=== PATIENT | female | born 1990 | race Caucasian/White ===

== ENCOUNTER → 2017-12-12 16:02 | Outpatient (CLI) | payer BC, SELFPAY ==
[2017-12-12 18:35] LABS: Thyroid Stim Hormone (TSH) 1.34 uIU/mL (0.358-3.74)
== END ==
PROVIDERS: Family Provider Family Medicine; PCP Family Medicine; Visit Provider Family Medicine
DX: F41.9 Anxiety disorder, unspecified (principal)
CPT/HCPCS: 36415; 84443

== ENCOUNTER 2019-07-13 21:55 | Emergency (ER) | payer BC, SELFPAY ==
[2019-07-13 21:56] VITALS: BP 131/79; PULSE 84; RESP 18; TEMP 36.1; O2SAT 97; BMI 30.9
[2019-07-13 22:26] VITALS: BP 123/70; BP 124/78; BP 128/68; PULSE 66; PULSE 67; PULSE 83
--- NOTE | 2019-07-13 22:27 | EKG12_ITS ---
Test Reason : DYSRHYTHMIA Blood Pressure : / mmHG Vent. Rate : 073 BPM Atrial Rate : 073 BPM P-R Int : 156 ms QRS Dur : 084 ms QT Int : 396 ms P-R-T Axes : 063 071 017 degrees QTc Int : 436 ms Sinus rhythm with Premature atrial complexes Otherwise normal ECG Confirmed by MAXIMUS FRAGA, ASTON ([id number]), publications editor ANKUR SALAZAR ([id number]) on 07/16/2019 11:40:32 AM Referred By: Confirmed By:ASTON STROUD MD
--- NOTE | 2019-07-13 22:29 | ED.VISSUMM ---
- ER Visit Summary Date of Service: 07/13/19 Chief Complaint: Dizziness History of Present Illness: The patient is a 29 F presenting with dizziness. Patient states this started yesterday. She complains of both lightheadedness and vertigo symptoms. She states the lightheadedness is worsened with standing. The vertigo, spinning sensation is worsening with any change in position or turning her head. She did have a syncopal episode in the shower yesterday. She did not hit her head or have any injuries. She denies fever. Denies chest pain or shortness of breath. She has mild nausea without vomiting. She denies abdominal pain. She also complains of dysuria with no frequency. Denies other complaints. Physical Examination: Vitals are stable. Patient is afebrile. Alert no acute distress. HEENT exam is unremarkable. Neck is supple. No meningismus Lungs are clear and equal bilaterally. Heart is regular rate and rhythm. Abdomen is soft nontender nondistended. Extremities are unremarkable. Skin is warm and dry. No focal neurologic deficit. Normal strength and sensation Remainder of exam is unremarkable. Emergency Department Course and Treatment: Patient was given IV fluids, Phenergan, meclizine. Orthostatic vital signs are negative. D-dimer negative. EKG is sinus rhythm rate of 73 with no acute ischemic changes. Basic metabolic panel normal except potassium 3.4. Urinalysis unremarkable. hCG negative. On reevaluation, patient is feeling improved. She is given prescription for meclizine. Advised to follow-up with her primary care physician. Advised return to ED if worsening complaints. Disposition: Discharge home Impression: Peripheral vertigo This note was generated with [employer] dictation software. It may contain incorrect words, spelling, and punctuation that were not noted in review of the chart prior to signing ED Disposition - Plan for ED Patient: Instructions: DIZZINESS, Unk Cause Prescriptions: Meclizine HCl [Antivert] 12.5 mg PO TID PRN PRN #20 tab PRN Reason: Vertigo Prescription Printed Referrals: Duncan Spicer MD [Primary Care Provider] -
--- NOTE | 2019-07-13 22:34 | ED.RN ---
NO OLD EKG
[2019-07-13] MEDS: 0.9% Normal Saline 1,000 ML 1000 ML IV (22:47)
[2019-07-13] MEDS: proMETHazine 25 MG/ML Syringe 6.25 MG IV (22:48)
[2019-07-13] MEDS: Meclizine HCl 25 MG Tablet PO (22:49)
[2019-07-13 23:15] LABS: D-Dimer Quantitative (DVT/PE) < 0.27 FEU/ug/m (0.27-0.49)
[2019-07-13 23:19] LABS: Anion Gap 5 (5-15); BUN 16 mg/dL (7-18); BUN/Creat Ratio 16.9 RATIO (10-20); Calcium,Total 8.4 mg/dL (8.5-10.1); Chloride 108 mmol/L (98-107); Creatinine, Serum 0.95 mg/dL (0.55-1.02); EST Glomerular Filtration Rate 75 mL/min (>60); Est Glom Filt Rate - Afr Amer 90 mL/min (>60); Estimated Creatinine Clearance 76.13 ml/min; Glucose 89 mg/dL (74-106); Potassium 3.4 mmol/L (3.5-5.1); Sodium Level 141 mmol/L (136-145)
[2019-07-13 23:29] LABS: Bacteria 0 SEEN /hpf (None Seen); Mucous, Urine 0 SEEN /hpf (<or=2+); Red Blood Cells-Urine 0 SEEN /hpf (0-5); White Blood Cells 0 SEEN /hpf (0-5)
[2019-07-13 23:35] LABS: Internal QC Validated? YES +Cl - CLEAR BKGD; Pregnancy, Serum, hCG Quali. NEGATIVE Negative
[2019-07-13 23:37] LABS: Color, Urine Straw (Yellow); Glucose, Dipstick Normal (Normal); Ketone-Dipstick Negative (Negative); Leukocyte Esterase-Dipstick Negative /ul (Negative); Nitrite-Dipstick Negative (Negative); Occult Blood-Urine Negative /ul (Negative); Protein-Dipstick Negative (Negative); Specific Gravity, Urine 1.005 (1.002-1.030); Urine Bilirubin Dipstick Negative (Negative); Urine Clarity Clear (Clear); Urine Urobilinogen Normal (Normal)
[2019-07-13 23:42] LABS: Squamous Epithelial Cells - UA 0-5 SEEN /hpf (5-10)
--- NOTE | 2019-07-13 23:48 | ED.DEP ---
ED Disposition - Plan for ED Patient: Instructions: DIZZINESS, Unk Cause Prescriptions: Meclizine HCl [Antivert] 12.5 mg PO TID PRN PRN #20 tablet PRN Reason: Vertigo Referrals: Duncan Spicer MD [Primary Care Provider] -
[2019-07-14 00:02] VITALS: BP 128/68; PULSE 66; RESP 15
== END 2019-07-14 00:03 | disposition home or self-care (01) ==
PROVIDERS: Emergency Provider Emergency Medicine; Family Provider Family Medicine; PCP Family Medicine
DX: H81.399 Other peripheral vertigo, unspecified ear (principal); F41.9 Anxiety disorder, unspecified
CPT/HCPCS: 80048; 81001; 84703; 85379; 93005; 96361; 96374; 99284; A4216

== ENCOUNTER 2019-07-25 08:09 | Emergency (ER) | payer BC, SELFPAY ==
[2019-07-25 08:11] VITALS: BP 127/69; PULSE 84; RESP 16; TEMP 36.9; O2SAT 100
--- NOTE | 2019-07-25 08:29 | ED.VISSUMM ---
- ER Visit Summary Date of Service: 07/25/19 Chief Complaint: Left fifth finger laceration History of Present Illness: The patient is a 29 F who presents with a laceration to her left fifth finger that occurred yesterday. Patient states she was at work yesterday and cut the tip of her finger with a pair of scissors. Patient was able to stop the bleeding yesterday. Patient states that today when she was in the shower she bumped it and it started bleeding again. Patient applied pressure. Patient denies any paresthesias or weakness. Patient is unsure of her last tetanus. Physical Examination: Vital signs are stable. Patient is afebrile. Patient is in no acute distress. Skin is warm and dry. There is a 0.5 cm diameter skin avulsion of the tip of the left fifth finger. There is no active bleeding noted. There are no foreign bodies noted. Sensation was intact to light touch in all digits. Capillary refill is less than 2 seconds in all digits. There is full range of motion of all digits. Emergency Department Course and Treatment: Patient was given a tetanus booster. A bulky dressing was applied. Patient was instructed to maintain a dressing for 2 days. Patient was instructed to then change the dressing daily. Patient was instructed to follow-up with her primary care physician in 5 to 7 days. Patient understood and was agreeable with the plan. All questions were answered. Disposition: Discharge home Impression: Avulsion laceration left fifth finger This note was generated with [employer] dictation software. It may contain incorrect words, spelling, and punctuation that were not noted in review of the chart prior to signing ED Disposition - Plan for ED Patient: Disposition: Home or Assisted Living Diagnosis: Avulsion of fingertip Instructions: LACERATION, Old - Not Sutured Referrals: Duncan Spicer MD [Primary Care Provider] - 5-7 Days
[2019-07-25] MEDS: Diphth,Pertuss(Acell),Tet Vac 0.5 ML Vial IM (08:45)
== END 2019-07-25 09:08 | disposition home or self-care (01) ==
LOC: ED 08:40
PROVIDERS: Emergency Provider Emergency Medicine; Family Provider Family Medicine; PCP Family Medicine
DX: S61.217A Laceration without foreign body of left little finger without damage to nail, initial encounter (principal); W45.8XXA Other foreign body or object entering through skin, initial encounter; Y93.9 Activity, unspecified; Y92.9 Unspecified place or not applicable; Y99.9 Unspecified external cause status; Z23 Encounter for immunization
CPT/HCPCS: 90471; 90715; 99283

== ENCOUNTER → 2020-04-20 17:45 | Outpatient (CLI) | payer BC, SELFPAY | PROVIDERS: Visit Provider Registered Nurse | DX: R05 Cough (principal) | CPT/HCPCS: 87635; U0003 ==

== ENCOUNTER → 2021-01-27 11:26 | Outpatient (CLI) | payer BC, SELFPAY ==
[2021-01-27 15:16] LABS: Absolute Lymphocyte Count 1.38 X10^3/uL (0.83-4.51); Absolute Neutrophil Count 4.1 X10^3/uL (2.0-7.7); Basophil% 1.6 % (0-1); Eosinophil# 0.31 X10^3/uL; Eosinophils% 4.8 % (0-5); Hematocrit 39.6 % (37-47); Hemoglobin 13.1 g/dL (12.0-15.0); Lymphocyte # 1.38 X10^3/ul (0.83-4.51); Lymphocyte % 21.4 % (19-41); Mean Corp Hgb Conc 33.1 g/dL (32-36); Mean Corpuscular Hgb 30.3 pg (27.0-32.0); Mean Corpuscular Volume 91.7 fL (81-99); Mean Platelet Vol. 9.9 fl (6.2-12.0); Monocyte% 7.8 % (0-10); NRBC Flagged by Analyzer 0 % (0-5); Neutrophil # 4.13 X10^3/uL (2.7-7.7); Neutrophil % 64.1 % (47-70); Platelet Count 317 K/mm3 (150-450); RBC Distribution Width CV 12.3 % (11.6-14.6); RBC Distribution Width SD 41.1 fl (35.1-43.9); Red Blood Count 4.32 M/mm3 (4.2-5.4); White Blood Count 6.4 K/mm3 (4.4-11.0)
[2021-01-27 15:42] LABS: Anion Gap 6 (5-15); BUN 14 mg/dL (7-18); BUN/Creat Ratio 15.9 RATIO (10-20); Calcium,Total 9.1 mg/dL (8.5-10.1); Chloride 108 mmol/L (98-107); Creatinine, Serum 0.88 mg/dL (0.55-1.02); EST Glomerular Filtration Rate 80 mL/min (>60); Est Glom Filt Rate - Afr Amer 97 mL/min (>60); Glucose 86 mg/dL (74-106); Potassium 4.4 mmol/L (3.5-5.1); Sodium Level 140 mmol/L (136-145); Thyroid Stim Hormone (TSH) 1.45 uIU/mL (0.358-3.74)
== END ==
PROVIDERS: PCP Family Medicine; Referring Provider Family Medicine; Visit Provider Family Medicine
DX: R07.9 Chest pain, unspecified (principal)
CPT/HCPCS: 36415; 80048; 84443; 85025

== ENCOUNTER → 2023-01-27 | Outpatient (CLI) | payer OTHER, SELFPAY ==
[2023-01-27 08:55] LABS: hCG Titer Quant., Serum 13163 mIU/mL (1-3)
== END | disposition home or self-care (01) ==
LOC: LAB 07:18
PROVIDERS: PCP Family Medicine; Referring Provider Obstetrics & Gynecology; Visit Provider Obstetrics & Gynecology
DX: O26.859 Spotting complicating pregnancy, unspecified trimester (principal); Z3A.00 Weeks of gestation of pregnancy not specified
CPT/HCPCS: 36415; 84702; 86850; 86900; 86901

== ENCOUNTER → 2023-01-29 | Outpatient (CLI) | payer OTHER, SELFPAY ==
[2023-01-29 09:54] LABS: hCG Titer Quant., Serum 22716 mIU/mL (1-3)
== END | disposition home or self-care (01) ==
LOC: LAB 07:21
PROVIDERS: PCP Family Medicine; Referring Provider Obstetrics & Gynecology; Visit Provider Obstetrics & Gynecology
DX: O20.0 Threatened abortion (principal); Z3A.39 39 weeks gestation of pregnancy
CPT/HCPCS: 36415; 84702

== ENCOUNTER → 2023-01-31 | Outpatient (CLI) | payer OTHER, SELFPAY ==
--- NOTE | 2023-01-31 18:16 | US_ITS ---
INDICATION: SPOTTING EXAMINATION: Ultrasound US OB Transvaginal TECHNIQUE: Transvaginal (for optimal evaluation of the adnexa) pelvic ultrasound was performed. Grayscale, spectral waveform, and color flow Doppler evaluation of the adnexa. COMPARISON: None. LMP: [12/22/2022 Beta-hCG: Unknown FINDINGS: UTERUS: 8.9 x 6.1 x 5.0 cm. RIGHT OVARY: 3.3 x 2.8 x 2.2 cm. 2.7 cm anechoic cyst. LEFT OVARY: 2.4 x 2.4 x 1.5 cm. 1.8 cm anechoic cyst. FREE FLUID: None. INTRAUTERINE GESTATIONAL SAC: Single. Mean sac diameter 1.9 cm. YOLK SAC: Identified POLE: Identified CRL 0.30 cm. ESTIMATED GESTATION AGE: 6 weeks 1 day. HEART MOTION: 127 bpm. PLACENTA: Not visualized due to age. SUBCHORIONIC HEMORRHAGE: None. AMNIOTIC FLUID: Qualitatively normal. US/Transvaginal w/Preg US IMPRESSION: Single live intrauterine . Estimated gestational age is 6 week 1 day with LANI 09/25/2023. Electronically Signed: Sheldon Epstein MD at 19:54 EDT ,
== END | disposition home or self-care (01) ==
LOC: OPUS 02-01 13:53
PROVIDERS: PCP Family Medicine; Referring Provider Obstetrics & Gynecology; Visit Provider Obstetrics & Gynecology
DX: O26.859 Spotting complicating pregnancy, unspecified trimester (principal); Z3A.00 Weeks of gestation of pregnancy not specified
CPT/HCPCS: 76817

== ENCOUNTER → 2023-02-22 | Outpatient (CLI) | payer OTHER, SELFPAY ==
[2023-02-24 06:09] LABS: Chlamydia By Nucleic Acid AMP Negative (Negative); Gonococcus By Nucleic Acid AMP Negative (Negative)
== END | disposition home or self-care (01) ==
LOC: LABSPEC 11:29
PROVIDERS: PCP Family Medicine; Referring Provider Obstetrics & Gynecology; Visit Provider Obstetrics & Gynecology
DX: Z34.00 Encounter for supervision of normal first pregnancy, unspecified trimester (principal)
CPT/HCPCS: 87077; 87086; 87088; 87186; 87491; 87591

== ENCOUNTER → 2023-02-28 | Outpatient (CLI) | payer OTHER, SELFPAY ==
[2023-02-28 08:22] LABS: Absolute Lymphocyte Count 1.21 X10^3/uL (0.83-4.51); Basophil# 0.06 X10^3/uL; Basophil% 0.9 % (0-1); Eosinophil# 0.24 X10^3/uL; Eosinophils% 3.4 % (0-5); Hematocrit 36.3 % (37-47); Hemoglobin 12.3 g/dL (12.0-15.0); Lymphocyte # 1.21 X10^3/ul (0.83-4.51); Lymphocyte % 17.2 % (19-41); Mean Corp Hgb Conc 33.9 g/dL (32-36); Mean Corpuscular Hgb 30.5 pg (27.0-32.0); Mean Corpuscular Volume 90.1 fL (81-99); Mean Platelet Vol. 8.9 fl (6.2-12.0); Monocyte# 0.53 X10^3/uL; Monocyte% 7.5 % (0-10); NRBC Flagged by Analyzer 0 % (0-5); Neutrophil # 4.96 X10^3/uL (2.7-7.7); Neutrophil % 70.3 % (47-70); Platelet Count 245 K/mm3 (150-450); RBC Distribution Width CV 12.3 % (11.6-14.6); RBC Distribution Width SD 40.8 fl (35.1-43.9); Red Blood Count 4.03 M/mm3 (4.2-5.4); White Blood Count 7.1 K/mm3 (4.4-11.0)
[2023-02-28 08:41] LABS: Glucose Challenge Gest 1H 50g 110 mg/dL (70-140)
[2023-02-28 09:15] LABS: NATERA MAILED SPECIMEN
[2023-02-28 09:24] LABS: HIV - WCH Non-Reactive (Nonreactive); Hepatitis B Surface Antigen Non-Reactive (Nonreactive); Hepatitis C Antibody Non-Reactive (Nonreactive); Rubella IgG Reactive (Nonreactive); Syphilis Antibodies Non-reactive
== END | disposition home or self-care (01) ==
LOC: PAVLAB 07:59
PROVIDERS: PCP Family Medicine; Referring Provider Obstetrics & Gynecology; Visit Provider Obstetrics & Gynecology
DX: Z34.00 Encounter for supervision of normal first pregnancy, unspecified trimester (principal)
CPT/HCPCS: 36415; 82950; 85025; 86703; 86762; 86780; 86803; 86850; 86900; 86901; 87340

== ENCOUNTER → 2023-03-23 | Outpatient (CLI) | payer OTHER, SELFPAY | END | disposition home or self-care (01) | LOC: LABSPEC 11:51 | PROVIDERS: PCP Family Medicine; Referring Provider Obstetrics & Gynecology; Visit Provider Obstetrics & Gynecology | DX: R30.0 Dysuria (principal) | CPT/HCPCS: 87086; 87088 ==

== ENCOUNTER → 2023-04-16 | Outpatient (CLI) | payer OTHER, SELFPAY | END | disposition home or self-care (01) | LOC: LABSPEC 11:43 | PROVIDERS: PCP Family Medicine; Referring Provider Advanced Practice Midwife; Visit Provider Advanced Practice Midwife | DX: O23.40 Unspecified infection of urinary tract in pregnancy, unspecified trimester (principal); Z3A.00 Weeks of gestation of pregnancy not specified | CPT/HCPCS: 87086 ==

== ENCOUNTER → 2023-05-14 | Outpatient (CLI) | payer OTHER, SELFPAY ==
--- NOTE | 2023-05-14 07:53 | US_ITS ---
INDICATION: anatomy EXAMINATION: Ultrasound US OB Greater Than 14 Weeks TECHNIQUE: Transabdominal and transvaginal pelvic ultrasound was performed. Arredondo scale and color Doppler technique COMPARISON: Prior study dated: 01/31/2023 LMP: 12/22/2022 Provided EGA: 20 weeks, 5 days FINDINGS: INTRAUTERINE GESTATION(s): Single. ESTIMATED GESTATIONAL AGE: 20 weeks, 3 days ESTIMATED DUE DATE (LANI): 09/28/2023 HEART MOTION is 148 bpm. MAXIMAL VERTICAL POCKET (MVP): 5.4 ESTIMATED WEIGHT: 384 g Percentile 53rd%. BIOPHYSICAL PROFILE (BPP): BIOMETRIC MEASUREMENTS: HEAD CIRCUMFERENCE: 17.9 cm which corresponds to 20 weeks, 3 days. BIPARIETAL DIAMETER: 4.8 cm which corresponds to 20 weeks 3 days. ABDOMINAL CIRCUMFERENCE: 16.0 cm which corresponds to 21 weeks, 1 day. FEMORAL LENGTH: 3.4 cm which corresponds to 20 weeks 5 days ANATOMY: Cranial structures, four-chamber heart, abdominal and pelvic viscera, spine and extremities were all well visualized and normal. PRESENTATION: Transverse/variable. PLACENTA: Anterior. There is no placenta previa or abruption. A succenturiate lobe of the placenta is present. CERVIX: The cervix is closed, measuring 3.9 cm. MATERNAL OVARIES: No adnexal masses. FREE FLUID: None. US/OB Anatomy Scan IMPRESSION: * Single live intrauterine with an estimated gestational age by ultrasound of 20 weeks, 3 days. * Estimated weight 384 g which is in the 53rd percentile. * Normal anatomy. * A succenturiate lobe of the placenta is present. Electronically Signed: Anders Martinez MD at 17:45 EDT ,
== END | disposition home or self-care (01) ==
PROVIDERS: PCP Family Medicine; Referring Provider Obstetrics & Gynecology; Visit Provider Obstetrics & Gynecology
DX: O26.859 Spotting complicating pregnancy, unspecified trimester (principal); Z3A.00 Weeks of gestation of pregnancy not specified
CPT/HCPCS: 76805; 76817

== ENCOUNTER → 2023-06-16 | Outpatient (CLI) | payer OTHER, SELFPAY ==
--- NOTE | 2023-06-16 09:27 | US_ITS ---
HISTORY: RUQ pain -- per office RUQ. TECHNIQUE: Arredondo scale and color doppler imaging was performed of the right upper quadrant. 65 images. COMPARISON: None. FINDINGS: LIVER: 15.5 cm in length. Homogeneous echotexture without focal lesion demonstrated. No intrahepatic ductal dilatation. MAIN PORTAL VEIN: Patent with flow in the appropriate direction. COMMON BILE DUCT: 3 mm in diameter. GALLBLADDER: No gallstones. 3 mm wall thickness, upper limits of normal. No pericholecystic fluid. Sonographic Gramajo sign negative. PANCREAS: No focal lesion in the visualized proximal portion. RIGHT KIDNEY: 13.3 cm in length with a cortical thickness of 1.1 cm. No hydronephrosis or gross renal mass demonstrated. US/Abdomen Limited IMPRESSION: No sonographic evidence of cholelithiasis. Electronically Signed: Ondina Sharma MD at 11:57 EST ,
== END | disposition home or self-care (01) ==
LOC: US 09:25
PROVIDERS: PCP Family Medicine; Referring Provider Obstetrics & Gynecology; Visit Provider Obstetrics & Gynecology
DX: R10.11 Right upper quadrant pain (principal)
CPT/HCPCS: 76705

== ENCOUNTER → 2023-07-10 | Outpatient (CLI) | payer OTHER, SELFPAY ==
[2023-07-10 08:07] LABS: Absolute Lymphocyte Count 1.29 X10^3/uL (0.83-4.51); Absolute Neutrophil Count 8.9 X10^3/uL (2.0-7.7); Basophil# 0.08 X10^3/uL; Basophil% 0.7 % (0-1); Eosinophil# 0.32 X10^3/uL; Eosinophils% 2.7 % (0-5); Hematocrit 36.2 % (37-47); Hemoglobin 11.9 g/dL (12.0-15.0); Lymphocyte # 1.29 X10^3/ul (0.83-4.51); Lymphocyte % 11.1 % (19-41); Mean Corp Hgb Conc 32.9 g/dL (32-36); Mean Corpuscular Hgb 31.6 pg (27.0-32.0); Mean Platelet Vol. 9.5 fl (6.2-12.0); Monocyte# 0.82 X10^3/uL; NRBC Flagged by Analyzer 0 % (0-5); Neutrophil % 76.5 % (47-70); Platelet Count 207 K/mm3 (150-450); RBC Distribution Width CV 12.7 % (11.6-14.6); RBC Distribution Width SD 44.3 fl (35.1-43.9); Red Blood Count 3.77 M/mm3 (4.2-5.4); White Blood Count 11.6 K/mm3 (4.4-11.0)
[2023-07-10 08:13] LABS: Glucose Challenge Gest 1H 50g 106 mg/dL (70-140)
[2023-07-10 10:13] LABS: HIV - WCH Non-Reactive (Nonreactive); Syphilis Antibodies Non-reactive
== END | disposition home or self-care (01) ==
PROVIDERS: PCP Family Medicine; Referring Provider Obstetrics & Gynecology; Visit Provider Obstetrics & Gynecology
DX: Z34.00 Encounter for supervision of normal first pregnancy, unspecified trimester (principal)
CPT/HCPCS: 36415; 82950; 85025; 86703; 86780

== ENCOUNTER → 2023-08-10 | Outpatient (CLI) | payer BC, SELFPAY ==
[2023-08-10 15:09] LABS: T4 Free Direct 0.75 ng/dL (0.76-1.46); Thyroid Stim Hormone (TSH) 1.23 uIU/mL (0.358-3.74)
[2023-08-12 10:07] LABS: Thyroid Peroxidase AB < 9 IU/mL (0-34)
== END | disposition home or self-care (01) ==
LOC: LAB 13:37
PROVIDERS: PCP Family Medicine; Referring Provider Obstetrics & Gynecology; Visit Provider Obstetrics & Gynecology
DX: E01.0 Iodine-deficiency related diffuse (endemic) goiter (principal)
CPT/HCPCS: 36415; 84439; 84443; 86376

== ENCOUNTER → 2023-08-28 | Outpatient (CLI) | payer BC, SELFPAY ==
--- NOTE | 2023-08-28 07:54 | US_ITS ---
STUDY: SECOND AND THIRD TRIMESTER OBSTETRICAL ULTRASOUND - LIMITED REASON FOR EXAM: Female, 33 years old growth LMP: December 20, 2022. PRIOR ULTRASOUND: Comparison is made with prior study May 14, 2023. TECHNIQUE: Transabdominal TECHNICAL QUALITY: Adequate. FINDINGS: There is a single intrauterine fetus. The fetus is in a cephalic presentation. There is demonstrated cardiac activity with a heart rate of 142 bpm. There is a normal amniotic fluid volume. The largest amniotic fluid pocket measures 4.7 cm. The amniotic fluid index (NAVI) is 11.64 cm. The placenta is anterior and posterior not low-lying. There is evidence of a succenturiate placenta. There are Grade 1 placental changes. The cervical length was not measured due to the head position. BIOMETRY: BPD: 9.08 cm: 36 weeks, 6 days HC: 32.55 cm: 36 weeks, 6 days AC: 32.27 cm: 36 weeks, 1 days FL: 7.04 cm: 36 weeks, 1 days Age by LMP: 35 weeks, 6 days. LANI by LMP: September 26, 2023. age by prior US: 35 weeks, 4 days. LANI by prior US: September 28, 2023. age by current US: 36 weeks, 5 days. LANI by current US: September 20, 2023. Estimated weight: 2931 grams, +/- 440 grams, 66 percentile. US/OB Limited With Biometrics IMPRESSION: Single live intrauterine gestation with a mean gestational age of 35 weeks and 4 days. The measurements obtained today following within the normal expected range. Electronically Signed: Moe Myers MD at 15:22 EST ,
--- OUTSIDE RECORDS SUMMARY | 2023-08-28 08:07 | XMS RPT_ITS | CCD ---
Author Name Unknown Address [address] [place] [address] Organization [facility] Care Team Providers Care Human Resources Administrator Name Role Phone Bambi FRAGA, Lucina Primary Care Provider NEPHAM ARMSTRONG, JULES Referring Unavail able GANTA, LUCINA Primary Care Unavailable NEYHART ARMSTRONG, JULES Referring Unavail able GANTA, LUCINA Primary Care Unavailable GANTA, LUCINA Primary Care Unavailable GENE GRACIA Attending Unavailable NEYHART ARMSTRONG, JULES Referring Unavail able GANTA, LUCINA Primary Care Unavailable GANTA, LUCINA Primary Care Unavailable NEYHART ARMSTRONG, JULES Attending Unavail able GANTA, LUCINA Primary Care Unavailable NEYHART ARMSTRONG, JULES Referring Unavail able NEYHART ARMSTRONG, JULES Referring Unavail able ALEJANDRA PAZ Attending Unavailable GANTA, LUCINA Primary Care Unavailable GANTA, LUCINA Primary Care Unavailable NEYHART ARMSTRONG, JULES Attending Unavail able GANTA, LUCINA Primary Care Unavailable GANTA, LUCINA Primary Care Unavailable Medications Completed/Discontinued Medications Medication Drug Class(es) Dates Sig (Normalized) Sig (Original) 24 hr buPROPion hydrochloride 150 mg extended release oral tablet (5 sources) Aminoketone Start: 11-02-2016 take 1 tablet by mouth once daily buPROPion XL (WELLBUTRIN XL) 150 mg 24 hr tablet Indications: Anxiety Take 1 tablet by mouth once daily. 90 tablet 3 11/02/2016 Active Problems Active Problems Problem Classification Problem Date Documented Date Episodic/Chronic Anxiety disorders (5 sources) Anxiety; Translations: [Anxiety disorder, unspecified] Onset: 08-04-2014 08-01-2021 Chronic Genitourinary symptoms and ill-defined conditions (1 source) Painful micturition, unspecified; Translations: [Pain with urination] Onset: 12-25-2022 Episodic Immunizations and screening for infectious disease (2 sources) Patient encounter status; Translations: [Encounter for screening for human papillomavirus (HPV)] Episodic Menstrual disorders (2 sources) Dysmenorrhea; Translations: [Dysmenorrhea, unspecified] Onset: 12-25-2022 Chronic Other female genital disorders (2 sources) Abnormal uterine bleeding; Translations: [Abnormal uterine and vaginal bleeding, unspecified] Chronic Other female genital disorders (1 source) Abnormal uterine and vaginal bleeding, unspecified; Translations: [Abnormal uterine bleeding (AUB)] Onset: 05-04-2022 Chronic Other nutritional; endocrine; and metabolic disorders (1 source) Obesity, unspecified; Translations: [Class 1 obesity with body mass index (BMI) of 33.0 to 33.9 in adult, unspecified obesity type, unspecified whether serious comorbidity present] Onset: 12-05-2022 Chronic Other nutritional; endocrine; and metabolic disorders (1 source) Body mass index (BMI) 33.0-33.9, adult; Translations: [Class 1 obesity with body mass index (BMI) of 33.0 to 33.9 in adult, unspecified obesity type, unspecified whether serious comorbidity present] Onset: 12-05-2022 Chronic Other screening for suspected conditions (not mental disorders or infectious disease) (5 sources) Cancer cervix screening status; Translations: [Encounter for screening for malignant neoplasm of cervix] Onset: 12-05-2022 Episodic Residual codes; unclassified (1 source) FH: Thyroid disorder; Translations: [Family history of other endocrine, nutritional and metabolic diseases] Episodic Thyroid disorders (7 sources) Goiter; Translations: [Nontoxic goiter, unspecified] Onset: 08-18-2014 Chronic Past or Other Problems Problem Classification Problem Date Documented Da te Episodic/Chronic Other nutritional; endocrine; and metabolic disorders (5 sources) Weight gain; Translations: [Abnormal weight gain] Onset: 08-04-2014 08-04-2014 Episodic Residual codes; unclassified (1 source) Family history of other endocrine, nutritional and metabolic diseases; Translations: [Family history of thyroid disease] Onset: 05-04-2022 Episodic Results Test Name Value Interpretation Reference Range Facil ity Vital Signs Date Time Vital Sign Value Performing Clinician Faci lity 05-04-2022 14:01-0400 Body weight 88.45 kg Jules Armstrong MD Work Phone: [facility] 05-04-2022 14:01-0400 Diastolic blood pressure 80 mm[Hg] Jules Armstrong MD Work Phone: [facility] 05-04-2022 14:010400 Systolic blood pressure 120 mm[Hg] Jules Armstrong MD Work Phone: [facility] Encounters Encounter Date Encounter Type Care Provider Facility Start: 01-30-2023 Telephone encounter Alejandra Paz MD Work Phone: URO/Gynecology Procedures Date Procedure Procedure Detail Performing Clinician Start: 05-04-2022 Urine test visual color cmprsn meths Jules Armstrong MD Work Phone: Plan of Treatment Date Care Activity Detail Author Start: 07-25-2029 Urine microalbumin profile DTAP,TDAP,TD (2 - Td or Tdap) [facility] Start: 05-04-2027 HPV TESTING HPV TESTING [facility] Start: 05-04-2027 PAP TESTING PAP TESTING [facility] Start: 08-06-2022 DEPRESSION ASSESSMENT DEPRESSION ASSESSMENT [facility] Start: 07-03-2022 9vhpv vacc 2/3 dose sched im use HUMAN PAPILLOMAVIRUS 9-VALENT HPV IM Immunization/Injection Routine Need for prophylactic vaccination/inoculation against viral disease Expected: 07/03/2022 (Approximate) [facility] Work Phone: Immunizations Immunization Date Immunization Notes Care Provider Fa cility 05-04-2022 Human Papillomavirus 9-valent vaccine Jules Armstrong MD Work Phone: [facility] 07-25-2019 tetanus toxoid, redu lorenzo diphtheria toxoid, and acellular pertussis vaccine, adsorbed Jules Armstrong MD Work Phone: [facility] Work Phone: 09-15-2014 human papilloma viru s vaccine, quadrivalent Jules Armstrong MD Work Phone: [facility] 08-20-2009 novel influenza-H1N1 -09, preservative-free, injectable Jules Armstrong MD Work Phone: [facility] Work Phone: 10-30-2008 hepatitis B vaccine, pediatric or pediatric/adolescent dosage Jules Armstrong MD Work Phone: [facility] Work Phone: 10-30-2008 hepatitis B vaccine, unspecified formulation Jules Armstrong MD Work Phone: [facility] Payers Date Payer Category Payer Unknown [id number] 2021 Unknown [id number] 2021 Unknown [id number] Social History Date Type Detail Facility Start: 04-14-2011 Tobacco smoking stat [facility] Never smoked tobacco [facility] Work Phone: Start: 04-14-2011 Tobacco use and exposure Smokeless tobacco non-user [facility] Work Phone: Start: 05-04-2022 End: 12-25-2022 Alcohol intake Not Asked [facility] Start: 1991 Sex Assigned At Not on file [facility] Start: 04-23-2022 End: 05-15-2022 Exposure to SARS-CoV-2 (event) Not sure [facility] Clinical Notes 05-04-2022 to 02-01-2023 Telephone Encounter - Tiago Tomlin APRN.CNP - 02/01/2023 3:15 PM EDTTelephone Encounter - Marly Norris RN - 01/30/2023 11:37 AM EDTTelephone Encounter - Graciela Mares RN - 10/30/2022 1:38 PM EDT Note Date & Type Note Facility 02-01-2023 Miscellaneous Notes Received a call from Dr. Sellers at [facility]. Case reviewed. MRI approved through 07/31/23. Approval number [id number]. Tiago Tomlin APRN.CORBY P2P for MRI set for 02/01 with Tiago Tomlin at 3:15 pm. Marly Norris RN documented in this encounter [facility] 12-25-2022 Note HNO ID: [id number] Author: Alejandra Paz MD Service: ? Author Type: Physician Type: Progress Notes Filed: 12/25/2022 4:45 PM Note Text: Female P/elvic Medicine AND Reconstructive Surgery Consult CHIEF COMPLAINT: Cyndie Crum is a 32 year old female who presents for consultation requested by Dr. Armstrong for an opinion regarding urinary pain during menstrual period. HISTORY OF PRESENT ILLNESS: Symptoms presented upon discontinuation of oral contraceptive in April 2022. She is currently trying to get . She had previously been on OCPs since 17 year old. During her menses she experiences burning pain with urination. Followed by a dull pain that lasts approximately 20 minutes after urination, 5/10 on pain scale. Also has vulvar pain, uses heat and medication. Only experiences these during menses. Intermittent urinary frequency. She also c/o dysmenorrhea, intermittent dyspareunia that also occurs mostly during her periods. She has had UA/Urine cultures that do not show infection. 05/21/2022 4:32 PM - [facility], Scanning In Results-Findings Indication Abnormal uterine bleeding Impression Normal appearing anteverted uterus that measures 75 mm x 37 mm x 45 mm. The central endometrium complex measures 4.3 mm in combined thickness. No abnormal blood flow to suggest a polyp or focal endometrial pathology is observed within the endometrial complex. The contour of the endometrial cavity was normal on 3-D imaging. The left ovary is normal appearing. There is a small, 2.6 cm simple appearing right ovarian cyst present. There is no free fluid visualized in the peritoneal cavity. Recommendations A simple ovarian cyst less than 5cm in a premenopausal woman is likely benign. Follow up imaging as clinically indicated. Method Transabdominal, transvaginal, 3D ultrasound examination, Color Doppler examination Uterus Uterus: Visualized Uterus position: anteverted Uterus long 75 mm Uterus ap 37 mm Uterus tr 45 mm Uterus Vol 64.5 cm? Endometrial thickness, total 4.3 mm Right Ovary Rt ovary: Visualized Rt ovary D1 31 mm Rt ovary D2 28 mm Rt ovary D3 28 mm Rt ovary Vol 12.7 cm? Rt ovarian cyst D1 26 mm Rt ovarian cyst D2 24 mm Rt ovarian cyst D3 23 mm Rt ovarian cyst mean 24.3 mm Rt ovarian cyst vol 7.515 cm? Rt ovarian cyst findings: simple cyst Left Ovary Lt ovary: Visualized Lt ovary D1 25 mm Lt ovary D2 20 mm Lt ovary D3 14 mm Lt ovary Vol 3.6 cm? Cul de Sac Visualized. 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 OB History T0 L0 Sexual function Sexually active: Sexual dysfunction: occasional deep pain during intercourse PFDI-20 Do you: Usually experience pressure in the lower abdomen? No (0) Usually experience heaviness or dullness in the pelvic area? No (0) Usually have a bulge or something falling out that you can see or feel in your vaginal area? No (0) Ever have to push on the vagina or around the rectum to have or complete a bowel movement? No (0) Usually experience a feeling of incomplete bladder emptying? Yes, somewhat bothersome (2) Ever have to push up on a bulge in the vaginal area with your fingers to start or complete urination? No (0) Feel you need to strain too hard to have a bowel movement? No (0) Feel you have not completely emptied your bowels at the end of a bowel movement? No (0) Usually lose stool beyond your control if your stool is well formed? No (0) Usually lose stool beyond your control if your stool is loose? No (0) Usually lose gas from the rectum beyond your control? No (0) Usually have pain when you pass your stool? Yes, somewhat bothersome (2) Experience a strong sense of urgency and have to rogers to the bathroom to have a bowel movement? No (0) Does part of your bowel ever pass through the rectum and bulge outside during or after a bowel movement? No (0) Usually experience frequent urination? Yes, somewhat bothersome (2) Usually experience urine leakage associated with a feeling of urgency, that is, a strong sensation of needing to go to the bathroom? No (0) Usually experience urine leakage related to coughing, sneezing or laughing? No (0) Usually experience small amounts of urine leakage (that is, drops)? No (0) Usually experience difficulty emptying your bladder? No (0) Usually experience pain or discomfort in the lower abdomen or genital region? Yes, moderately bothersome (3) PAST SURGICAL HISTORY Procedure Laterality Date NONE PAST MEDICAL HISTORY Diagnosis Date Anxiety 08/04/2014 Having anxiety for the past 3 months. Thyroid nodule 08/18/2014 Weight gain 08/04/2014 FAMI (more content not included)... [facility] 12-05-2022 Note HNO ID: [id number] Author: Jules Armstrong MD Service: ? Author Type: Physician Type: Progress Notes Filed: 12/05/2022 8:41 AM Note Text: Cyndie Crum is a 32 year old female who presents for problem visit patient reports having pain with urination only during her menstrual cycle. She states that this has been happening over the last year. She states that she stopped her oral contraceptive pills in April and noticed that the pain has gotten worse. She states that she is only had about 2 regular cycles since stopping her oral contraceptive pills but the pain is definitely more severe. She states that she describes discomfort/pressure sensation. She does have some frequency. She states that it is different from a sensation of an infection. She has tried to take Pyridium without any improvement. She reports she does not drink any significant amount of caffeine or acidic beverages. Patient reports no other pelvic pain no pain with bowel movements no pain with intercourse. She states that her menses are little bit more painful than she previously remembers. Patient reports no other pelvic pain no pain with bowel movements no pain with intercourse. She states that her menses are little bit more painful than she previously remembers. She has taken ibuprofen without much relief. She wonders if she does have endometriosis. She is starting to track her cycles that she would like to conceive. Patient also complaining of blood-streaked stools over the last few months. Does not have a history of hemorrhoids. She denies any straining with her bowel movements she denies constipation or diarrhea. Patient also concerned with inability to lose weight. She states she keeps gaining weight despite attempts to lose weight. Is interested in weight management options. OB History No obstetric history on file. Teletype Adjuster History LMP: 04/06/2022, Having periods Age at Menarche: Age at First : Age at Menopause: Teletype Adjuster History Comments: Sexual Activity: Not Asked; No partner data on record Contraception: No contraception data on record PAST MEDICAL HISTORY Diagnosis Date Anxiety 08/04/2014 Having anxiety for the past 3 months. Thyroid nodule 08/18/2014 Weight gain 08/04/2014 PAST SURGICAL HISTORY Procedure Laterality Date NONE FAMILY HISTORY Problem Relation Age of Onset Hypertension Mother Hypertension Father Thyroid Mother Headache Son Developmental problem Child Hypertension Paternal Grandfather Diabetes Paternal Grandfather Multiple Sclerosis Maternal Aunt Social History Tobacco Use Smoking status: Never Smokeless tobacco: Never Current Outpatient Medications Medication Sig Desogestrel-Ethinyl Estradiol (APRI) 0.15-0.03 mg per tablet Take 1 tablet by mouth once daily. Needs annual appointment for further refills (Patient not taking: Reported on 12/05/2022) hydrOXYzine HCl (ATARAX) 25 mg tablet TAKE 1 TABLET BY MOUTH EVERY 6 HOURS NEEDED FOR ITCHING/RASH. (Patient not taking: Reported on 05/04/2022) buPROPion XL (WELLBUTRIN XL) 150 mg 24 hr tablet Take 1 tablet by mouth once daily. (Patient not taking: Reported on 05/04/2022) No current facility-administered medications for this visit. Allergies As of Date: 12/05/2022 (No Known Allergies) Fully Assessed 12/05/2022 REVIEW OF SYSTEMS Abdomen: see hpi Bladder: see hpi .. Expanded ROS: GENERAL: Negative for fever Allergies and current medication updated:Yes EXAM: BP 114/70 Wt 194 lb (88.0kg) LMP 11/27/2022 GENERAL: pleasant, female in no apparent distress HEENT: Normocephalic and atraumatic NECK: Supple and full range of motion DERMATOLOGY: Normal and without lesions NEURO: alert and oriented x3,exam grossly non-focal EXTREMITIES: normal ASSESSMENT AND PLAN: Encounter Diagnosis ICD-10-CM 1. Pain with urination R30.9 CONSULT TO URO GYNECOLOGY 2. Dysmenorrhea N94.6 CONSULT TO URO GYNECOLOGY 3. Hematuria, unspecified type R31.9 URINE CULTURE 4. Blood in stool K92.1 CONSULT TO GASTROENTEROLOGY 5. Class 1 obesity with body mass index (BMI) of 33.0 to 33.9 in adult, unspecified obesity type, unspecified whether serious comorbidity present E66.9 VITAMIN D 25 HYDROXY Z68.33 INSULIN ASSAY BLOOD HGB A1C LIPID PANEL, NONFASTING COMP METABOLIC PANEL CBC 6. Encounter for vitamin deficiency screening Z13.21 VITAMIN D 25 HYDROXY 7. Encounter for screening for diabetes mellitus Z13.1 INSULIN ASSAY BLOOD HGB A1C COMP METABOLIC PANEL 8. Screening cholesterol level Z13.220 LIPID PANEL, NONFASTING 9. Screening, anemia, deficiency, iron Z13.0 CBC Weight mgmt appt reviewed with patient. Previous pelvic us reviewed with patient- declines another pelvic ultrasound a this time. Possible IC vs endometriosis implants in bladder mucosa reviewed with patient. May want to consider pelvic pain clinic. Will send to urogyn for further evaluation and GI for blood i (more content not included)... [facility] 10-30-2022 Miscellaneous Notes Patient notified. Transferred to financial counselor. Graciela Mares RN Have her schedule visit- last time I saw her she was having irregular bleeding per my note. At that point we can decide what labs are needed etc. Virtual visit ok. Patient calling with concerns that she has not had a period in 5 months. Patient recently stopped taking her OCP last month as she would like to become . Per patient though she was not having a period while she was on the pill either since April. Patient states she has taken 3 tests and all have been negative. Patient asking at what point she should be concerned that a menses has not occurred. Pinky Topete RN documented in this encounter [facility] 05-15-2022 Note HNO ID: [id number] Author: Sheila Bell RDMS Service: ? Author Type: Nurse Advocate Type: Progress Notes Filed: 05/15/2022 2:53 PM Note Text: Radiology Service Progress Note PATIENT NAME: Cyndie Crum DATE OF SERVICE: May 15, 2022 TIME: 2:52 PM PATIENT IDENTITY VERIFICATION COMPLETED USING TWO (2) IDENTIFIERS: Name and Date of confirmed by patient verbally. FALL SCREENING: Has the patient had 2 falls in the last year or 1 fall with injury or currently using an Ambulatory Assistive Device (Walker, Cane, Wheelchair, Crutches, etc.)? No PATIENT GENDER DATA: Female. status: : No status: NO. PATIENT RELEVANT IMPLANT DATA REVIEWED: Not Applicable RADIOLOGY DEPARTMENT: Ultrasound PERIPHERAL IV DATA: Not applicable SIGNED BY: Sheila Bell RDMS May 15, 2022 2:52 PM [facility] 05-09-2022 Miscellaneous Notes Patient informed Yes I feel she should her thyroid felt enlarged on exam. Patient aware of normal thyroid labs. Asking if she still needs to complete the thyroid u/s that is scheduled for 05/15? Sole Fortune RN documented in this encounter [facility] 05-04-2022 Note HNO ID: [id number] Author: Maribel Carrion MA Service: ? Author Type: Monkey Breeder Type: Progress Notes Filed: 05/04/2022 3:20 PM Note Text: Patient identified by name and date of . Cyndie Crum is here for her HPV Gardasil vaccination, injection # two of the series. Patient ?No Gardasil injection was given without incident. See immunizations for details of immunizations administered today. VIS sheet provided: Yes Patient advised to follow up in 4 months from the 2nd injection Provider Jules Armstrong MD was present in office at time of injection. Maribel Carrion MA [facility] 05-04-2022 Note HNO ID: [id number] Author: Jules Armstrong MD Service: ? Author Type: Physician Type: Progress Notes Filed: 05/04/2022 3:20 PM Note Text: Roll Inspector offered: Patient declines. Cyndie Crum is a 32 year old female who presents for irregular bleeding. Patient reports has been on control pills for many years. She states that in April she has had bleeding nearly every day. Patient states the bleeding is unpredictable but between light and heavy. Patient states in March she did take 1 pill late but other than that has been consistent with taking her medication. Patient states is not a mass relationship with her and declines any concerns for STDs or vaginal infections today. She denies any vaginal odors itching or burning. Patient reports that she does have a significant family history for thyroid disease. Patient denies any bleeding disorders. Patient reports does not feel that she has ever had a Pap smear done previously. Patient states she has not finished her HPV vaccination. Patient denies any significant recent life stressors including weight loss or weight gain. She denies any changes with medications. Patient offers no other concerns at this time. OB History No obstetric history on file. Teletype Adjuster History LMP: 04/06/2022, Having periods Age at Menarche: Age at First : Age at Menopause: Teletype Adjuster History Comments: Sexual Activity: Not Asked; No partner data on record Contraception: No contraception data on record PAST MEDICAL HISTORY Diagnosis Date Anxiety 08/04/2014 Having anxiety for the past 3 months. Thyroid nodule 08/18/2014 Weight gain 08/04/2014 PAST SURGICAL HISTORY Procedure Laterality Date NONE FAMILY HISTORY Problem Relation Age of Onset Hypertension Mother Hypertension Father Thyroid Mother Headache Son Developmental problem Child Hypertension Paternal Grandfather Diabetes Paternal Grandfather Multiple Sclerosis Maternal Aunt Social History Tobacco Use Smoking status: Never Smokeless tobacco: Never Current Outpatient Medications Medication Sig Desogestrel-Ethinyl Estradiol (APRI) 0.15-0.03 mg per tablet Take 1 tablet by mouth once daily. Needs annual appointment for further refills hydrOXYzine HCl (ATARAX) 25 mg tablet TAKE 1 TABLET BY MOUTH EVERY 6 HOURS NEEDED FOR ITCHING/RASH. (Patient not taking: Reported on 05/04/2022) buPROPion XL (WELLBUTRIN XL) 150 mg 24 hr tablet Take 1 tablet by mouth once daily. (Patient not taking: Reported on 05/04/2022) No current facility-administered medications for this visit. Allergies As of Date: 05/04/2022 (No Known Allergies) Fully Assessed 11/02/2016 REVIEW OF SYSTEMS Abdomen: no pain Bladder: no dysuria .. Expanded ROS: GENERAL: No weight loss, malaise or fevers Allergies and current medication updated:Yes EXAM: BP 120/80 Wt 195 lb (88.5kg) LMP 04/06/2022 GENERAL: pleasant, female in no apparent distress HEENT: Normocephalic and atraumatic NECK: Supple, full range of motion, no adenopathy, and enlarged thyroid- RIGHT >> LEFT DERMATOLOGY: Normal, without lesions, non-icteric, and non-hirsute ABDOMEN: soft, non-tender, and no masses PELVIC: external genitalia normal, normal Bartholin's glands, urethra, Gravity's glands, no vulvar lesions, no cervical lesions, good vaginal support, physiologic discharge present, normal appearing perineal body and perianal region- scant blood in vault. BIMANUAL: uterus normal size, shape and consistency, no adnexal masses, and non-tender NEURO: alert and oriented x3,exam grossly non-focal EXTREMITIES: normal ASSESSMENT AND PLAN: Encounter Diagnosis ICD-10-CM 1. Abnormal uterine bleeding (AUB) N93.9 CBC PELVIC US WHI ASUNCION / TRICHOMONAS AMPLIFICATION BACTERIAL VAGINOSIS AMPLIFICATION 2. Dysmenorrhea N94.6 PELVIC US WHI HCG QUAL UR B/O 3. Family history of thyroid disease Z83.49 TSH BLD THYROGLOBULIN AB T3 BLD T4/FTI/T4U US THYROID/PARATHYROID 4. Enlarged thyroid E04.9 TSH BLD THYROGLOBULIN AB T3 BLD T4/FTI/T4U US THYROID/PARATHYROID 5. Encounter for screening for human papillomavirus (HPV) Z11.51 PAP FLUID CERVICAL SCREENING 6. Screening for cervical cancer Z12.4 PAP FLUID CERVICAL SCREENING 7. Need for prophylactic vaccination/inoculation against viral disease Z23 THER/PROPH/DIAG INJ, SC/IM HUMAN PAPILLOMAVIRUS 9-VALENT HPV IM HUMAN PAPILLOMAVIRUS 9-VALENT HPV IM 8. Causes of abnormal bleeding or discussed with the patient. Recommendation at this point is to take her placebo pills this week and then start her new pack as scheduled. If the bleeding becomes heavy or does not stop after 5 days of taking the inactive pill then we will consider doubling up on her control pills if all of her labs are normal. Patient verbalized understanding agrees with her plan of care. I will call her with the results once all the labs are resulted. 9 HPV vaccine (more content not included)... [facility] 05-04-2022 History of Presen t illness Narrative Patient identified by name and date of . Cyndie Crum is here for her HPV Gardasil vaccination, injection # two of the series. Patient ?No Gardasil injection was given without incident. See immunizations for details of immunizations administered today. VIS sheet provided: Yes Patient advised to follow up in 4 months from the 2nd injection Provider Jules Armstrong MD was present in office at time of injection. Maribel Carrion MA Roll Inspector offered: Patient declines. Cyndie Crum is a 32 year old female who presents for irregular bleeding. Patient reports has been on control pills for many years. She states that in April she has had bleeding nearly every day. Patient states the bleeding is unpredictable but between light and heavy. Patient states in March she did take 1 pill late but other than that has been consistent with taking her medication. Patient states is not a mass relationship with her and declines any concerns for STDs or vaginal infections today. She denies any vaginal odors itching or burning. Patient reports that she does have a significant family history for thyroid disease. Patient denies any bleeding disorders. Patient reports does not feel that she has ever had a Pap smear done previously. Patient states she has not finished her HPV vaccination. Patient denies any significant recent life stressors including weight loss or weight gain. She denies any changes with medications. Patient offers no other concerns at this time. OB History No obstetric history on file. Teletype Adjuster History LMP: 04/06/2022, Having periods Age at Menarche: Age at First : Age at Menopause: Teletype Adjuster History Comments: Sexual Activity: Not Asked; No partner data on record Contraception: No contraception data on record PAST MEDICAL HISTORY Diagnosis Date Anxiety 08/04/2014 Having anxiety for the past 3 months. Thyroid nodule 08/18/2014 Weight gain 08/04/2014 PAST SURGICAL HISTORY Procedure Laterality Date NONE FAMILY HISTORY Problem Relation Age of Onset Hypertension Mother Hypertension Father Thyroid Mother Headache Son Developmental problem Child Hypertension Paternal Grandfather Diabetes Paternal Grandfather Multiple Sclerosis Maternal Aunt Social History Tobacco Use Smoking status: Never Smokeless tobacco: Never Current Outpatient Medications Medication Sig Desogestrel-Ethinyl Estradiol (APRI) 0.15-0.03 mg per tablet Take 1 tablet by mouth once daily. Needs annual appointment for further refills hydrOXYzine HCl (ATARAX) 25 mg tablet TAKE 1 TABLET BY MOUTH EVERY 6 HOURS NEEDED FOR ITCHING/RASH. (Patient not taking: Reported on 05/04/2022) buPROPion XL (WELLBUTRIN XL) 150 mg 24 hr tablet Take 1 tablet by mouth once daily. (Patient not taking: Reported on 05/04/2022) No current facility-administered medications for this visit. Allergies As of Date: 05/04/2022 (No Known Allergies) Fully Assessed 11/02/2016 REVIEW OF SYSTEMS Abdomen: no pain Bladder: no dysuria .. Expanded ROS: GENERAL: No weight loss, malaise or fevers Allergies and current medication updated:Yes EXAM: BP 120/80 Wt 195 lb (88.5kg) LMP 04/06/2022 GENERAL: pleasant, female in no apparent distress HEENT: Normocephalic and atraumatic NECK: Supple, full range of motion, no adenopathy, and enlarged thyroid- RIGHT >> LEFT DERMATOLOGY: Normal, without lesions, non-icteric, and non-hirsute ABDOMEN: soft, non-tender, and no masses PELVIC: external genitalia normal, normal Bartholin's glands, urethra, [place]'s glands, no vulvar lesions, no cervical lesions, good vaginal support, physiologic discharge present, normal appearing perineal body and perianal region- scant blood in vault. BIMANUAL: uterus normal size, shape and consistency, no adnexal masses, and non-tender NEURO: alert and oriented x3,exam grossly non-focal EXTREMITIES: normal ASSESSMENT AND PLAN: Encounter Diagnosis ICD-10-CM 1. Abnormal uterine bleeding (AUB) N93.9 CBC PELVIC US WHI ASUNCION / TRICHOMONAS AMPLIFICATION BACTERIAL VAGINOSIS AMPLIFICATION 2. Dysmenorrhea N94.6 PELVIC US WHI HCG QUAL UR B/O 3. Family history of thyroid disease Z83.49 TSH BLD THYROGLOBULIN AB T3 BLD T4/FTI/T4U US THYROID/PARATHYROID 4. Enlarged thyroid E04.9 TSH BLD THYROGLOBULIN AB T3 BLD T4/FTI/T4U US THYROID/PARATHYROID 5. Encounter for screening for human papillomavirus (HPV) Z11.51 PAP FLUID CERVICAL SCREENING 6. Screening for cervical cancer Z12.4 PAP FLUID CERVICAL SCREENING 7. Need for prophylactic vaccination/inoculation against viral disease Z23 THER/PROPH/DIAG INJ, SC/IM HUMAN PAPILLOMAVIRUS 9-VALENT HPV IM HUMAN PAPILLOMAVIRUS 9-VALENT HPV IM 8. Causes of abnormal bleeding or discussed with the patient. Recommendation at this point is to take her placebo pills this week and then start her new pack as scheduled. If the bleeding becomes heavy or does not stop after 5 days of taking the inactive pill then we will consider doubling up on her control pills if all of her labs are normal. Patient verbalized understanding agrees with her plan of care. I will call her with the results once all the labs are resulted. 9 HPV vaccine Medical Decision Making: Medical Decision Making Level: 1 - N/A Jules Rivera MD documented in this encounter [facility] 05-04-2022 Instructions Maribel Carrion MA - 05/04/2022 2:27 PM EDT Gardasil Gardasil is a vaccine to protect against Human Papillomavirus (HPV) types 6, 11, 16, 18, 31,33,45, 52, 58. These viruses cause cancer and precancerous lesions on the cervix (opening between vagina and uterus), in the vagina and on the vulva (skin around the outside of the vagina) as well as genital warts. The vaccine cannot cause these diseases and cannot treat them if already present. Gardasil works best if given before contact with HPV. Most people are exposed to HPV soon after starting sexual activity. The vaccine is recommended between the ages of 9 and 45. Gardasil does not protect against all strains of HPV. Women who receive the vaccine still need to have regular pelvic exams and cervical cancer screening with the pap smear. You should ask your doctor if Gardasil is right for you if you have a weakened immune system, a bleeding disorder, plan to become soon or have a current illness causing fever. Gardasil is not recommended for women. You should be sure your doctor is aware of any allergies you have and all medications and herbal supplements you take. Gardasil is given to those ages 9-14 in 2 doses at 0 and 8 months. In ages 15-45, three injections are given at 0,2,6 months. Common side effects include pain, redness, itching and swelling at the injection site, nausea, fever, dizziness and fainting. Rare but potentially serious reactions have been reported. These include allergic reaction, swollen glands, joint and muscle pain, weakness and Guillain-[place] syndrome. documented in this encounter [facility] Diagnosis DUB (dysfunctional uterine bleeding)- Primary Other disorder of menstruation and other abnormal bleeding from female genital tract [facility]ative)* Diagnostic Procedure Only (Routine) - Open Specialty Diagnoses / Procedures Referred By Ayaan ricci Referred To Contact [facility] Diagnoses Abnormal uterine bleeding (AUB) Dysmenorrhea Procedures PELVIC US WHI US PELVIC NONOBSTETRIC REAL-TIME IMAGE COMPLETE Jules Leggett MD [address] [place] [address] [address] Referral ID Status Reason Start Date Expiration Date V isits Requested Visits Authorized [id number] Open Auto-Generate d Referral 05/04/2022 05/04/2023 1 1 * Diagnostic Procedure Only (Routine) - Authorized Specialty Diagnoses / Procedures Referred By Contac t Referred To Contact [facility] Diagnoses Family history of thyroid disease Enlarged thyroid Procedures US THYROID/PARATHYROID US SOFT TISSUE HEAD & NECK REAL TIME IMGE DOCM Jules Leggett MD [address] [place] [address] [facility] Referral ID Status Reason Start Date Expiration Date Visits Requested Visits Authorized [id number] Authorized Auto-Generat ed Referral 05/04/2022 06/03/2023 1 1 [facility] Summary Purpose Family History No Family History Records Found Advance Directives No Advanced Directives Records Found Additional Source Comments Source Comments (unrecognize d section and content) In the event this informatio n is protected by the Federal Confidentiality of Alcohol and Drug Abuse Patient Records regulations: The Federal rules restrict any use of the information to criminally investigate or prosecute any alcohol or drug abuse patient.[facility] the event this information is protected by the Federal Confidentiality of Alcohol and Drug Abuse Patient Records regulations: The Federal rules restrict any use of the information to criminally investigate or prosecute any alcohol or drug abuse patient.[facility] the event this information is protected by the Federal Confidentiality of Alcohol and Drug Abuse Patient Records regulations: The Federal rules restrict any use of the information to criminally investigate or prosecute any alcohol or drug abuse patient.[facility] the event this information is protected by the Federal Confidentiality of Alcohol and Drug Abuse Patient Records regulations: The Federal rules restrict any use of the information to criminally investigate or prosecute any alcohol or drug abuse patient.[facility] the event this information is protected by the Federal Confidentiality of Alcohol and Drug Abuse Patient Records regulations: The Federal rules restrict any use of the information to criminally investigate or prosecute any alcohol or drug abuse patient.[facility] Reason for Visit (unrecogniz ed section and content) Reason Comments Patient Question Reason Comments DUB Reason Comments Irregular Menstrual Cycle Reason Comments Care Coordination MRI - reconsideratio n Care Teams (unrecognized sec tion and content) Human Resources Administrator Relationship Specialty Start Date End Date Lucina Lacy MD [address] [place], [place] [id number] PCP - General Internal Medicine 08/04/14 Human Resources Administrator Relationship Specialty Start Date End Date Lucina Lacy MD [address], [place] [id number] PCP - General Internal Medicine 08/04/14 Human Resources Administrator Relationship Specialty Start Date End Date Lucina Lacy MD [address] [place] [address] PCP - General Internal Medicine 08/04/14 INFORMATION SOURCE (unrecogn ized section and content) FOR RECORDS PERTAINING TO PATIENTS WHO ARE OR HAVE BEEN ENROLLED IN A CHEMICAL DEPENDENCY/SUBSTANCEABUSE PROGRAM, SOME INFORMATION MAY BE OMITTED. This clinical summary was aggregated from multiple sources. Caution should be exercised in using it in the provision of clinical care. This summary normalizes information from multiple sources, and as a consequence, information in this document may materially change the coding, format and clinical context of patient data. In addition, data may be omitted in some cases. CLINICAL DECISIONS SHOULD BE BASED ON THE PRIMARY CLINICAL RECORDS. [employer] provides no warranty or guarantee of the accuracy or completeness of information in this document.
== END | disposition home or self-care (01) ==
PROVIDERS: PCP Family Medicine; Referring Provider Obstetrics & Gynecology; Visit Provider Obstetrics & Gynecology
DX: O43.199 Other malformation of placenta, unspecified trimester (principal); Z3A.00 Weeks of gestation of pregnancy not specified
CPT/HCPCS: 76816

== ENCOUNTER → 2023-09-03 | Outpatient (CLI) | payer BC, SELFPAY ==
--- OUTSIDE RECORDS SUMMARY | 2023-09-03 12:06 | XMS RPT_ITS | CCD ---
Author Name Unknown Address [address] [facility] [facility] [address] [place] [address] Organization [facility] Care Team Providers Care Professor Of Pathology Name Role Phone Bambi FRAGA, Lucina Primary [...] 88.45 kg Jules Armstrong MD Work Phone: [facility] 05-04-2022 14:01-0400 Diastolic blood pressure 80 mm[Hg] Jules Armstrong MD Work Phone: [facility] 05-04-2022 14:010400 Systolic blood pressure 120 mm[Hg] Jules Armstrong MD Work Phone: [facility] Encounters Encounter Date Encounter Type Care Provider Facility Start: 01-30-2023 Telephone encounter Alejandra Paz MD Work Phone: URO/Gynecology Procedures Date Procedure Procedure Detail Performing Clinician Start: 05-04-2022 Urine test visual color cmprsn meths Jules Armstrong MD Work Phone: Plan of Treatment Date Care Activity Detail Author Start: 07-25-2029 Urine microalbumin profile DTAP,TDAP,TD (2 - Td or Tdap) [facility] Start: 05-04-2027 HPV TESTING HPV TESTING [facility] Start: 05-04-2027 PAP TESTING PAP TESTING [facility] Start: 08-06-2022 DEPRESSION ASSESSMENT DEPRESSION ASSESSMENT [facility] Start: 07-03-2022 9vhpv vacc 2/3 dose sched im use HUMAN PAPILLOMAVIRUS 9-VALENT HPV IM Immunization/Injection Routine Need for prophylactic vaccination/inoculation against viral disease Expected: 07/03/2022 (Approximate) [facility] Work Phone: Immunizations Immunization Date Immunization Notes Care Provider Fa cility 05-04-2022 Human Papillomavirus 9-valent vaccine Jules Armstrong MD Work Phone: [facility] 07-25-2019 tetanus toxoid, redu lorenzo diphtheria toxoid, and acellular pertussis vaccine, adsorbed Jules Armstrong MD Work Phone: [facility] Work Phone: 09-15-2014 human papilloma viru s vaccine, quadrivalent Jules Armstrong MD Work Phone: [facility] 08-20-2009 novel influenza-H1N1 -09, preservative-free, injectable Jules Armstrong MD Work Phone: [facility] Work Phone: 10-30-2008 hepatitis B vaccine, pediatric or pediatric/adolescent dosage Jules Armstrong MD Work Phone: [facility] Work Phone: 10-30-2008 hepatitis B vaccine, unspecified formulation Jules Armstrong MD Work Phone: [facility] Payers Date Payer Category Payer Unknown [id number] 2021 Unknown [id number] 2021 Unknown [id number] Social History Date Type Detail Facility Start: 04-14-2011 Tobacco smoking stat [facility] Never smoked tobacco [facility] Work Phone: Start: 04-14-2011 Tobacco use and exposure Smokeless tobacco non-user [facility] Work Phone: Start: 05-04-2022 End: 12-25-2022 Alcohol intake Not Asked [facility] Start: 1990 Sex Assigned At Not on file [facility] Start: 04-23-2022 End: 05-15-2022 Exposure to SARS-CoV-2 (event) Not sure [facility] Clinical Notes 05-04-2022 to 02-01-2023 Telephone Encounter - Tiago Tomlin APRN.CNP - 02/01/2023 3:15 PM EDTTelephone Encounter - Marly Norris RN - 01/30/2023 11:37 AM EDTTelephone Encounter - Graciela Mares RN - 10/30/2022 1:38 PM EDT Note Date & Type Note Facility 02-01-2023 Miscellaneous Notes Received a call from Dr. Sellers at [facility]. Case reviewed. MRI approved through 07/31/23. Approval number [id number]. Tiago Tomlin APRN.CORBY P2P for MRI set for 02/01 with Tiago Tomlin at 3:15 pm. Marly Norris RN documented in this encounter [facility] 12-25-2022 Note HNO ID: [id number] Author: Alejandra Paz MD Service: ? Author Type: Physician Type: Progress Notes Filed: 12/25/2022 4:45 PM Note Text: Female P/elvic Medicine AND Reconstructive Surgery Consult CHIEF COMPLAINT: Cyndie Crmu is a 32 year old female who [...] free fluid visualized Medical and Symptom History: WEIGHT LOSS CONSULTANT HISTORY: Last Pap: Date:05/04/22, normal; Last Mammogram: [...] gain 08/04/2014 FAMI (more content not included)... [facility] 12-05-2022 Note HNO ID: [id number] Author: Jules Armstrong MD Service: ? Author [...] OB History No obstetric history on file. Regional Vice President Surgical Sales History LMP: 04/06/2022, Having periods Age at Menarche: Age at First : Age at Menopause: Regional Vice President Surgical Sales History Comments: Sexual Activity: Not Asked; No [...] for blood i (more content not included)... [facility] 10-30-2022 Miscellaneous Notes Patient notified. Transferred [...] Pinky Topete RN documented in this encounter [facility] 05-15-2022 Note HNO ID: [id number] Author: Sheila Bell RDMS Service: ? Author Type: Physician Industrial Type: Progress Notes Filed: 05/15/2022 2:53 PM [...] Bell RDMS May 15, 2022 2:52 PM [facility] 05-09-2022 Miscellaneous Notes Patient informed Yes I feel she should her thyroid felt enlarged on exam. Patient aware of normal thyroid labs. Asking if she still needs to complete the thyroid u/s that is scheduled for 05/15? Sole Fortune RN documented in this encounter [facility] 05-04-2022 Note HNO ID: [id number] Author: Maribel Carrion MA Service: ? Author Type: Tube Pusher Type: Progress Notes Filed: 05/04/2022 3:20 PM [...] at time of injection. Maribel Carrion MA [facility] 05-04-2022 Note HNO ID: [id number] Author: Jules Armstrong MD Service: ? Author Type: Physician Type: Progress Notes Filed: 05/04/2022 3:20 PM Note Text: Back Tender Fourdrinier offered: Patient declines. Cyndie Crum is a [...] OB History No obstetric history on file. Regional Vice President Surgical Sales History LMP: 04/06/2022, Having periods Age at Menarche: Age at First : Age at Menopause: Regional Vice President Surgical Sales History Comments: Sexual Activity: Not Asked; No [...] external genitalia normal, normal Bartholin's glands, urethra, [place]'s glands, no vulvar lesions, no cervical lesions, [...] 9 HPV vaccine (more content not included)... [facility] 05-04-2022 History of Presen t illness [...] at time of injection. Maribel Carrion MA Back Tender Fourdrinier offered: Patient declines. Cyndie Crum is a [...] OB History No obstetric history on file. Regional Vice President Surgical Sales History LMP: 04/06/2022, Having periods Age at Menarche: Age at First : Age at Menopause: Regional Vice President Surgical Sales History Comments: Sexual Activity: Not Asked; No [...] external genitalia normal, normal Bartholin's glands, urethra, [place]'s glands, no vulvar lesions, no cervical lesions, [...] Jules Rivera MD documented in this encounter [facility] 05-04-2022 Instructions Maribel Carrion MA - 05/04/2022 [...] glands, joint and muscle pain, weakness and Guillain-[place] syndrome. documented in this encounter [facility] Diagnosis DUB (dysfunctional uterine bleeding)- Primary Other disorder of menstruation and other abnormal bleeding from female genital tract [facility] (n[facility]ative)* Diagnostic Procedure Only (Routine) - Open Specialty Diagnoses / Procedures Referred By Ayaan ricci Referred To Contact [facility] Diagnoses Abnormal uterine bleeding (AUB) Dysmenorrhea Procedures PELVIC US WHI US PELVIC NONOBSTETRIC REAL-TIME IMAGE COMPLETE Jules Leggett MD [address] [place] [address] [address] Referral ID Status Reason Start Date Expiration Date V isits Requested Visits Authorized [id number] Open Auto-Generate d Referral 05/04/2022 05/04/2023 1 1 * Diagnostic Procedure Only (Routine) - Authorized Specialty Diagnoses / Procedures Referred By Contac t Referred To Contact [facility] Diagnoses Family history of thyroid disease Enlarged thyroid Procedures US THYROID/PARATHYROID US SOFT TISSUE HEAD & NECK REAL TIME IMGE DOCM Jules Leggett MD [address] [place] [address] [facility] Referral ID Status Reason Start Date Expiration Date Visits Requested Visits Authorized [id number] Authorized Auto-Generat ed Referral 05/04/2022 06/03/2023 1 1 [facility] Summary Purpose Family History No Family History [...] or prosecute any alcohol or drug abuse patient.[facility] the event this information is protected by the Federal Confidentiality of Alcohol and Drug Abuse Patient Records regulations: The Federal rules restrict any use of the information to criminally investigate or prosecute any alcohol or drug abuse patient.[facility] Foundation[facility] the event this information is protected by the Federal Confidentiality of Alcohol and Drug Abuse Patient Records regulations: The Federal rules restrict any use of the information to criminally investigate or prosecute any alcohol or drug abuse patient.[facility] Foundation[facility] the event this information is protected by the Federal Confidentiality of Alcohol and Drug Abuse Patient Records regulations: The Federal rules restrict any use of the information to criminally investigate or prosecute any alcohol or drug abuse patient.[facility] Foundation[facility] the event this information is protected by the Federal Confidentiality of Alcohol and Drug Abuse Patient Records regulations: The Federal rules restrict any use of the information to criminally investigate or prosecute any alcohol or drug abuse patient.[facility] Reason for Visit (unrecogniz ed section and content) Reason Comments Patient Question Reason Comments DUB Reason Comments Irregular Menstrual Cycle Reason Comments Care Coordination MRI - reconsideratio n Care Teams (unrecognized sec tion and content) Professor Of Pathology Relationship Specialty Start Date End Date Lucina Lacy MD [address] [place], [place] [phone] PCP - General Internal Medicine 08/04/14 Professor Of Pathology Relationship Specialty Start Date End Date Lucina Lacy MD [address], [place] [id number] PCP - General Internal Medicine 08/04/14 Professor Of Pathology Relationship Specialty Start Date End Date Lucina Lacy MD [address] [place] [address] PCP - General Internal Medicine 08/04/14 INFORMATION [...] BE BASED ON THE PRIMARY CLINICAL RECORDS. [employer]. provides no warranty or guarantee of the accuracy or completeness of information in this document.
== END | disposition home or self-care (01) ==
LOC: LABSPEC 11:30
PROVIDERS: PCP Family Medicine; Referring Provider Obstetrics & Gynecology; Visit Provider Obstetrics & Gynecology
DX: Z34.90 Encounter for supervision of normal pregnancy, unspecified, unspecified trimester (principal)
CPT/HCPCS: 87081

== ENCOUNTER 2023-09-17 21:45 | Outpatient (CLI) | payer BC, SELFPAY ==
--- OUTSIDE RECORDS SUMMARY | 2023-09-17 21:52 | XMS RPT_ITS | CCD ---
Author Name Unknown Address [address] [place] [address] Organization [facility] Care Team Providers Care Screw Driver Operator Name Role Phone Bambi FRAGA, Lucina Primary [...] 88.45 kg Jules Armstrong MD Work Phone: [facility] 05-04-2022 14:01-0400 Diastolic blood pressure 80 mm[Hg] Jules Armstrong MD Work Phone: [facility] 05-04-2022 14:010400 Systolic blood pressure 120 mm[Hg] Jules Armstrong MD Work Phone: [facility] Encounters Encounter Date Encounter Type Care Provider Facility Start: 01-30-2023 Telephone encounter Alejandra Paz MD Work Phone: URO/Gynecology Procedures Date Procedure Procedure Detail Performing Clinician Start: 05-04-2022 Urine test visual color cmprsn meths Jules Armstrong MD Work Phone: Plan of Treatment Date Care Activity Detail Author Start: 07-25-2029 Urine microalbumin profile DTAP,TDAP,TD (2 - Td or Tdap) [facility] Start: 05-04-2027 HPV TESTING HPV TESTING [facility] Start: 05-04-2027 PAP TESTING PAP TESTING [facility] Start: 08-06-2022 DEPRESSION ASSESSMENT DEPRESSION ASSESSMENT [facility] Start: 07-03-2022 9vhpv vacc 2/3 dose sched im use HUMAN PAPILLOMAVIRUS 9-VALENT HPV IM Immunization/Injection Routine Need for prophylactic vaccination/inoculation against viral disease Expected: 07/03/2022 (Approximate) [facility] Work Phone: Immunizations Immunization Date Immunization Notes Care Provider Fa cility 05-04-2022 Human Papillomavirus 9-valent vaccine Jules Armstrong MD Work Phone: [facility] 07-25-2019 tetanus toxoid, redu lorenzo diphtheria toxoid, and acellular pertussis vaccine, adsorbed Jules Armstrong MD Work Phone: [facility] Work Phone: 09-15-2014 human papilloma viru s vaccine, quadrivalent Jules Armstrong MD Work Phone: [facility] 08-20-2009 novel influenza-H1N1 -09, preservative-free, injectable Jules Armstrong MD Work Phone: [facility] Work Phone: 10-30-2008 hepatitis B vaccine, pediatric or pediatric/adolescent dosage Jules Armstrong MD Work Phone: [facility] Work Phone: 10-30-2008 hepatitis B vaccine, unspecified formulation Jules Armstrong MD Work Phone: [facility] Payers Date Payer Category Payer Unknown [id number] 2021 Unknown [id number] 2021 Unknown [id number] Social History Date Type Detail Facility Start: 04-14-2011 Tobacco smoking stat [facility] Never smoked tobacco [facility] Work Phone: Start: 04-14-2011 Tobacco use and exposure Smokeless tobacco non-user [facility] Work Phone: Start: 05-04-2022 End: 12-25-2022 Alcohol intake Not Asked [facility] Start: 1990 Sex Assigned At Not on file [facility] Start: 04-23-2022 End: 05-15-2022 Exposure to SARS-CoV-2 (event) Not sure [facility] Clinical Notes 05-04-2022 to 02-01-2023 Telephone Encounter - Tiago Tomlin APRN.CNP - 02/01/2023 3:15 PM EDTTelephone Encounter - Marly Norris RN - 01/30/2023 11:37 AM EDTTelephone Encounter - Graciela Mares RN - 10/30/2022 1:38 PM EDT Note Date & Type Note Facility 02-01-2023 Miscellaneous Notes Received a call from Dr. Sellers at [facility]. Case reviewed. MRI approved through 07/31/23. Approval number [id number]. Tiago Tomlin APRN.CORBY P2P for MRI set for 02/01 with Tiago Tomlin at 3:15 pm. Marly Norris RN documented in this encounter [facility] 12-25-2022 Note HNO ID: [id number] Author: Alejandra Paz MD Service: ? 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 [facility] 12-05-2022 Note HNO ID: [id number] Author: Jules Armstrong MD Service: ? Author [...] OB History No obstetric history on file. 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 [facility] 10-30-2022 Miscellaneous Notes Patient notified. Transferred to [...] Pinky Topete RN documented in this encounter [facility] 05-15-2022 Note HNO ID: [id number] Author: Sheila Bell RDMS Service: ? Author Type: Autocutter Type: Progress Notes Filed: 05/15/2022 2:53 PM [...] Bell RDMS May 15, 2022 2:52 PM [facility] 05-09-2022 Miscellaneous Notes Patient informed Yes I feel she should her thyroid felt enlarged on exam. Patient aware of normal thyroid labs. Asking if she still needs to complete the thyroid u/s that is scheduled for 05/15? Sole Fortune RN documented in this encounter [facility] 05-04-2022 Note HNO ID: [id number] Author: Maribel Carrion MA Service: ? Author Type: Jet Engine Mechanic Type: Progress Notes Filed: 05/04/2022 3:20 PM [...] at time of injection. Maribel Carrion MA [facility] 05-04-2022 Note HNO ID: [id number] Author: Jules Armstrong MD Service: ? Author Type: Physician Type: Progress Notes Filed: 05/04/2022 3:20 PM Note Text: Prepress Specialist offered: Patient declines. Cyndie Crum is a [...] OB History No obstetric history on file. Rfid Strategist History LMP: 04/06/2022, Having periods Age at Menarche: Age at First : Age at Menopause: Rfid Strategist History Comments: Sexual Activity: Not Asked; No [...] external genitalia normal, normal [place]'s glands, urethra, [place]'s glands, no vulvar lesions, no cervical lesions, [...] 9 HPV vaccine (more content not included)... [facility] 05-04-2022 History of Presen t illness Narrative [...] at time of injection. Maribel Carrion MA Prepress Specialist offered: Patient declines. Cyndie Crum is a [...] OB History No obstetric history on file. Rfid Strategist History LMP: 04/06/2022, Having periods Age at Menarche: Age at First : Age at Menopause: Rfid Strategist History Comments: Sexual Activity: Not Asked; No [...] external genitalia normal, normal Bartholin's glands, urethra, [place]'s glands, no vulvar lesions, no cervical lesions, [...] Jules Rivera MD documented in this encounter [facility] 05-04-2022 Instructions Maribel Carrion MA - 05/04/2022 [...] glands, joint and muscle pain, weakness and Guillain-[place] syndrome. documented in this encounter [facility] documented [facility]* Diagnosis DUB (dysfunctional uterine bleeding)- Primary Other disorder of menstruation and other abnormal bleeding from female genital tract documented [facility] (narrative)* Diagnostic Procedure Only (Routine) - Open Specialty Diagnoses / Procedures Referred By Ayaan ricci Referred To Contact [facility] Diagnoses Abnormal uterine bleeding (AUB) Dysmenorrhea Procedures PELVIC US WHI US PELVIC NONOBSTETRIC REAL-TIME IMAGE COMPLETE Jules Leggett MD [address] [place] [address] [address] Referral ID Status Reason Start Date Expiration Date V isits Requested Visits Authorized [id number] Open Auto-Generate d Referral 05/04/2022 05/04/2023 1 1 * Diagnostic Procedure Only (Routine) - Authorized Specialty Diagnoses / Procedures Referred By Contac t Referred To Contact [facility] Diagnoses Family history of thyroid disease Enlarged thyroid Procedures US THYROID/PARATHYROID US SOFT TISSUE HEAD & NECK REAL TIME IMGE DOCM Jules Leggett MD [address] [place] [address] [facility] Referral ID Status Reason Start Date Expiration Date Visits Requested Visits Authorized [id number] Authorized Auto-Generat ed Referral 05/04/2022 06/03/2023 1 1 [facility] Summary Purpose Family History No Family History [...] or prosecute any alcohol or drug abuse patient.[facility] the event this information is protected by the Federal Confidentiality of Alcohol and Drug Abuse Patient Records regulations: The Federal rules restrict any use of the information to criminally investigate or prosecute any alcohol or drug abuse patient.[facility] the event this information is protected by the Federal Confidentiality of Alcohol and Drug Abuse Patient Records regulations: The Federal rules restrict any use of the information to criminally investigate or prosecute any alcohol or drug abuse patient.[facility] the event this information is protected by the Federal Confidentiality of Alcohol and Drug Abuse Patient Records regulations: The Federal rules restrict any use of the information to criminally investigate or prosecute any alcohol or drug abuse patient.[facility] the event this information is protected by the Federal Confidentiality of Alcohol and Drug Abuse Patient Records regulations: The Federal rules restrict any use of the information to criminally investigate or prosecute any alcohol or drug abuse patient.[facility] Reason for Visit (unrecogniz ed section and content) Reason Comments Patient Question Reason Comments DUB Reason Comments Irregular Menstrual Cycle Reason Comments Care Coordination MRI - reconsideratio n Care Teams (unrecognized sec tion and content) Screw Driver Operator Relationship Specialty Start Date End Date Lucina Lacy MD [address] [place], [place] [id number] PCP - General Internal Medicine 08/04/14 Screw Driver Operator Relationship Specialty Start Date End Date Lucina Lacy MD [address] [place], [place] [id number] PCP - General Internal Medicine 08/04/14 Screw Driver Operator Relationship Specialty Start Date End Date Lucina Lacy MD [address] [place] [address] PCP - General Internal Medicine 08/04/14 INFORMATION [...] BE BASED ON THE PRIMARY CLINICAL RECORDS. [employer] provides no warranty or guarantee of the accuracy or completeness of information in this document.
[2023-09-17 22:03] VITALS: BMI 40.6
[2023-09-17 22:15] VITALS: BP 128/72; PULSE 78; TEMP 36.6; O2SAT 95
[2023-09-17 22:46] LABS: ROM Internal Control Test YES-OK TO RESULT pt. (Internal QC)
[2023-09-17 22:49] LABS: ROM Patient Test Negative (Negative)
--- NOTE | 2023-09-22 05:53 | OB.TRI.PN_ITS ---
Progress Notes Date of Service: 09/17/23 Progress Note: Patient presents for triage evaluation secondary to possible SROM FHT: 110-120 Moderate variability reactive no decelerations category I tracing [place]: irregular Contractions Assessment and plan: amniotic membranes intact Reactive NST, reassuring maternal and status patient discharged to home to follow-up as scheduled. See problem list details for additional plan information. Laboratory Studies: Laboratory Tests 09/17/23 Range/Units 22:15 Vag Amniotic Fld Detect Negative (Negative) Charges/Coding Procedures Urinary/Genital 52xxx-59xxx: 31481-11 non-stress test Interp
== END 2023-09-17 23:05 | disposition home or self-care (01) ==
LOC: WPOUT 21:50 → WP 21:51
PROVIDERS: PCP Family Medicine; Referring Provider Obstetrics & Gynecology; Visit Provider Obstetrics & Gynecology
DX: Z03.79 Encounter for other suspected maternal and fetal conditions ruled out (principal)
CPT/HCPCS: 59025; 59050; 84112; 99221; G0378

== ENCOUNTER 2023-09-26 19:00 | Inpatient (IN) | payer BC, SELFPAY ==
[2023-09-26 19:17] VITALS: BMI 40.5
[2023-09-26 19:25] VITALS: PULSE 93; TEMP 36.5; O2SAT 98
[2023-09-26 19:28] VITALS: BP 137/89; PULSE 91
[2023-09-26 19:54] LABS: Absolute Lymphocyte Count 1.61 X10^3/uL (0.83-4.51); Absolute Neutrophil Count 6.8 X10^3/uL (2.0-7.7); Basophil# 0.06 X10^3/uL; Basophil% 0.6 % (0-1); Eosinophils% 2.1 % (0-5); Hematocrit 36.4 % (37-47); Hemoglobin 12.3 g/dL (12.0-15.0); Lymphocyte # 1.61 X10^3/ul (0.83-4.51); Lymphocyte % 16.8 % (19-41); Mean Corp Hgb Conc 33.8 g/dL (32-36); Mean Corpuscular Hgb 31.9 pg (27.0-32.0); Mean Corpuscular Volume 94.5 fL (81-99); Mean Platelet Vol. 10.7 fl (6.2-12.0); Monocyte# 0.81 X10^3/uL; Monocyte% 8.5 % (0-10); NRBC Flagged by Analyzer 0 % (0-5); Neutrophil # 6.75 X10^3/uL (2.7-7.7); Neutrophil % 70.6 % (47-70); Platelet Count 195 K/mm3 (150-450); RBC Distribution Width CV 13.2 % (11.6-14.6); Red Blood Count 3.85 M/mm3 (4.2-5.4); White Blood Count 9.6 K/mm3 (4.4-11.0)
[2023-09-26] MEDS: miSOPROStol 25 MCG TABLET VAGINAL (20:02)
--- OUTSIDE RECORDS SUMMARY | 2023-09-26 20:16 | XMS RPT_ITS | CCD ---
Author Name Unknown Address [address] [place] [address] Organization [facility] Care Team Providers Care Hand Worker Name Role Phone Bambi FRAGA, Lucina Primary [...] 88.45 kg Jules Armstrong MD Work Phone: [facility] 05-04-2022 14:01-0400 Diastolic blood pressure 80 mm[Hg] Jules Armstrong MD Work Phone: [facility] 05-04-2022 14:010400 Systolic blood pressure 120 mm[Hg] Jules Armstrong MD Work Phone: [facility] Encounters Encounter Date Encounter Type Care Provider Facility Start: 01-30-2023 Telephone encounter Alejandra Paz MD Work Phone: URO/Gynecology Procedures Date Procedure Procedure Detail Performing Clinician Start: 05-04-2022 Urine test visual color cmprsn meths Jules Armstrong MD Work Phone: Plan of Treatment Date Care Activity Detail Author Start: 07-25-2029 Urine microalbumin profile DTAP,TDAP,TD (2 - Td or Tdap) [facility] Start: 05-04-2027 HPV TESTING HPV TESTING [facility] Start: 05-04-2027 PAP TESTING PAP TESTING [facility] Start: 08-06-2022 DEPRESSION ASSESSMENT DEPRESSION ASSESSMENT [facility] Start: 07-03-2022 9vhpv vacc 2/3 dose sched im use HUMAN PAPILLOMAVIRUS 9-VALENT HPV IM Immunization/Injection Routine Need for prophylactic vaccination/inoculation against viral disease Expected: 07/03/2022 (Approximate) [facility] Work Phone: Immunizations Immunization Date Immunization Notes Care Provider Fa cility 05-04-2022 Human Papillomavirus 9-valent vaccine Jules Armstrong MD Work Phone: [facility] 07-25-2019 tetanus toxoid, redu lorenzo diphtheria toxoid, and acellular pertussis vaccine, adsorbed Jules Armstrong MD Work Phone: [facility] Work Phone: 09-15-2014 human papilloma viru s vaccine, quadrivalent Jules Armstrong MD Work Phone: [facility] 08-20-2009 novel influenza-H1N1 -09, preservative-free, injectable Jules Armstrong MD Work Phone: [facility] Work Phone: 10-30-2008 hepatitis B vaccine, pediatric or pediatric/adolescent dosage Jules Armstrong MD Work Phone: [facility] Work Phone: 10-30-2008 hepatitis B vaccine, unspecified formulation Jules Armstrong MD Work Phone: [facility] Payers Date Payer Category Payer Unknown [id number] 2021 Unknown [id number] 2021 Unknown [id number] Social History Date Type Detail Facility Start: 04-14-2011 Tobacco smoking stat [facility] Never smoked tobacco [facility] Work Phone: Start: 04-14-2011 Tobacco use and exposure Smokeless tobacco non-user [facility] Work Phone: Start: 05-04-2022 End: 12-25-2022 Alcohol intake Not Asked [facility] Start: 1990 Sex Assigned At Not on file C [facility] Start: 04-23-2022 End: 05-15-2022 Exposure to SARS-CoV-2 (event) Not sure [facility] Clinical Notes 05-04-2022 to 02-01-2023 Telephone Encounter - Tiago Tomlin APRN.CNP - 02/01/2023 3:15 PM EDTTelephone Encounter - Marly Norris RN - 01/30/2023 11:37 AM EDTTelephone Encounter - Graciela Mares RN - 10/30/2022 1:38 PM EDT Note Date & Type Note Facility 02-01-2023 Miscellaneous Notes Received a call from Dr. Sellers at [facility]. Case reviewed. MRI approved through 07/31/23. Approval number [id number]. Tiago Tomlin APRN.CORBY P2P for MRI set for 02/01 with Tiago Tomlin at 3:15 pm. Marly Norris RN documented in this encounter [facility] 12-25-2022 Note HNO ID: [id number] Author: Alejandra Paz MD Service: ? 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 [facility] 12-05-2022 Note HNO ID: [id number] Author: Jules Armstrong MD Service: ? Author [...] OB History No obstetric history on file. [place] [place] History LMP: 04/06/2022, Having periods Age at Menarche: Age at First : Age at Menopause: [place] History Comments: Sexual Activity: Not Asked; No [...] for blood i (more content not included)... [facility] 10-30-2022 Miscellaneous Notes Patient notified. Transferred [...] Pinky Topete RN documented in this encounter [facility] 05-15-2022 Note HNO ID: [id number] Author: Sheila Bell RDMS Service: ? Author Type: Staff Pharmacist Hospital Type: Progress Notes Filed: 05/15/2022 2:53 PM [...] Bell RDMS May 15, 2022 2:52 PM [facility] 05-09-2022 Miscellaneous Notes Patient informed Yes I feel she should her thyroid felt enlarged on exam. Patient aware of normal thyroid labs. Asking if she still needs to complete the thyroid u/s that is scheduled for 05/15? Sole Fortune RN documented in this encounter [facility] 05-04-2022 Note HNO ID: [id number] Author: Maribel Carrion MA Service: ? Author Type: Wave Solder Offbearer Type: Progress Notes Filed: 05/04/2022 3:20 PM [...] at time of injection. Maribel Carrion MA [facility] 05-04-2022 Note HNO ID: [id number] Author: Jules Armstrong MD Service: ? Author Type: Physician Type: Progress Notes Filed: 05/04/2022 3:20 PM Note Text: Generator Operator offered: Patient declines. Cyndie Crum is a [...] OB History No obstetric history on file. [place] History LMP: 04/06/2022, Having periods Age at Menarche: Age at First : Age at Menopause: [place] History Comments: Sexual Activity: Not Asked; No [...] external genitalia normal, normal Bartholin's glands, urethra, [place]'s glands, no vulvar lesions, no cervical lesions, [...] 9 HPV vaccine (more content not included)... [facility] 05-04-2022 History of Presen t illness [...] at time of injection. Maribel Carrion MA Generator Operator offered: Patient declines. Cyndie Crum is a [...] OB History No obstetric history on file. [place] History LMP: 04/06/2022, Having periods Age at Menarche: Age at First : Age at Menopause: [place] History Comments: Sexual Activity: Not Asked; No [...] external genitalia normal, normal [place]tholin's glands, urethra, [place]'s glands, no vulvar lesions, no cervical lesions, [...] Jules Rivera MD documented in this encounter [facility] 05-04-2022 Instructions Maribel Carrion MA - [...] glands, joint and muscle pain, weakness and Guillain-[place] syndrome. documented in this encounter [facility] Diagnosis DUB (dysfunctional uterine bleeding)- Primary Other disorder of menstruation and other abnormal bleeding from female genital tract [facility]ative)* Diagnostic Procedure Only (Routine) - Open Specialty Diagnoses / Procedures Referred By Ayaan ricci Referred To Contact [facility] Diagnoses Abnormal uterine bleeding (AUB) Dysmenorrhea Procedures PELVIC US WHI US PELVIC NONOBSTETRIC REAL-TIME IMAGE COMPLETE Jules Leggett MD [address] [place] [address] [address] Referral ID Status Reason Start Date Expiration Date V isits Requested Visits Authorized [id number] Open Auto-Generate d Referral 05/04/2022 05/04/2023 1 1 * Diagnostic Procedure Only (Routine) - Authorized Specialty Diagnoses / Procedures Referred By Contac t Referred To Contact [facility] Diagnoses Family history of thyroid disease Enlarged thyroid Procedures US THYROID/PARATHYROID US SOFT TISSUE HEAD & NECK REAL TIME IMGE DOCM Jules Leggett MD [address] [place] [address] Us Imaging Referral ID Status Reason Start Date Expiration Date Visits Requested Visits Authorized [id number] Authorized Auto-Generat ed Referral 05/04/2022 06/03/2023 1 1 [facility] Summary Purpose Family History No Family [...] or prosecute any alcohol or drug abuse patient.[facility] the event this information is protected by the Federal Confidentiality of Alcohol and Drug Abuse Patient Records regulations: The Federal rules restrict any use of the information to criminally investigate or prosecute any alcohol or drug abuse patient.[facility] the event this information is protected by the Federal Confidentiality of Alcohol and Drug Abuse Patient Records regulations: The Federal rules restrict any use of the information to criminally investigate or prosecute any alcohol or drug abuse patient.[facility]In the event this information is protected by the Federal Confidentiality of Alcohol and Drug Abuse Patient Records regulations: The Federal rules restrict any use of the information to criminally investigate or prosecute any alcohol or drug abuse patient.[facility] the event this information is protected by the Federal Confidentiality of Alcohol and Drug Abuse Patient Records regulations: The Federal rules restrict any use of the information to criminally investigate or prosecute any alcohol or drug abuse patient.[facility] Reason for Visit (unrecogniz ed section and content) Reason Comments Patient Question Reason Comments DUB Reason Comments Irregular Menstrual Cycle Reason Comments Care Coordination MRI - reconsideratio n Care Teams (unrecognized sec tion and content) Hand Worker Relationship Specialty Start Date End Date Lucina Lacy MD [address] [place], [place] [phone] PCP - General Internal Medicine 08/04/14 Hand Worker Relationship Specialty Start Date End Date Lucina Lacy MD [address] [place], [place] [phone] PCP - General Internal Medicine 08/04/14 Hand Worker Relationship Specialty Start Date End Date Lucina Lacy MD [address] [place] [address] PCP - General Internal Medicine 08/04/14 INFORMATION [...] BE BASED ON THE PRIMARY CLINICAL RECORDS. [employer] provides no warranty or guarantee of the accuracy or completeness of information in this document.
[2023-09-26 20:41] LABS: Syphilis Antibodies Non-reactive
[2023-09-26] MEDS: CHLORHEXIDINE GLUC 2% CLOTH 1 EACH TOWELETTE TOPICAL (22:06)
[2023-09-27] VITALS (43 sets, daily range): BP systolic 107–187; BP diastolic 51–106; PULSE 44–90; TEMP 36.2–37.4; O2SAT 80–100
[2023-09-27] MEDS: miSOPROStol 25 MCG TABLET VAGINAL (00:14)
[2023-09-27] MEDS: Lactated Ringers 1,000 ML 50 ML IV (06:22)
[2023-09-27] MEDS: LACTATED RINGERS 500 ML 999 ML IV ×2 (06:26→12:46)
--- NOTE | 2023-09-27 08:04 | HP.PCM.OB_ITS ---
HPI - General General Date of Admission: 09/26/23 HPI Narrative BINA CELIS, is a 33 F who presents for IOL secondary to obesity. no vb lof admits good fm no regular ctx prior to IOL. cytotec overnight and now pit and fb placed now. succenturiate placenta also present. Maternal Data Information LANI Calculator Estimated Delivery Date Method Current WG Current Estimate 09/26/23 LMP (Certain) 40w 1d PFSH PFSH Medical History (Updated 09/27/23 @ 08:[address] 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[employer] current occupational exposures/hazards: No pets and animals: Yes sexually active: Yes Smoking Status: Never smoker alcohol intake: current details: not while seatbelt use: always do you feel safe at home: Yes additional [facility] History 1 Elective abortions Hx Para 0 Spontaneous abortions Hx # Term Pregnancies Ectopic pregnancies Hx # Pregnancies Multiple births # of living children Visit Details Expected Delivery Route/Plan Labor Preferences- CB/BF classes: encouraged labor support person: Tc labor intervention preferences: [] pain management options preferred: epidural cut cord/dad catch: no : unsure PP control planned: discussed discussed possible routes of delivery and associated risks: [] special requests: [] Plans Covid status: vax X2 Flu vaccine: given Tdap vaccine: given Rhogam: NA LARC form signed: yes Problem list reviewed and updated with the most current plan of care details and appropriate orders placed. Relevant counseling for the gestational age provided. Continue routine care and follow up unless otherwise noted in visit notes/problem list details OB Flowsheet Initial Weight: Not Recorded Date -?-?-?-?-?-?-?-?-?-?-?-?- EGA Weight BP Urine Prot -?-?-?-?-?-?-?-?-?-?-?-?- Glucose FHR FuHt Pres Dilation -?-?-?-?-?-?-?-?-?-?-?-?- Effaced St Visit Note 02/22/23 -?-?-?-?-?-?-?-?-?-?-?-?- 9w 1d 193 lb 6 oz 113/78 -?-?-?-?-?-?-?-?-?-?-?-?- 160 -?-?-?-?-?-?-?-?-?-?-?-?- SM- CRL 2.4cm co ns with LMP 03/23/23 -?-?-?-?-?-?-?-?-?-?-?-?- 13w 2d 195 lb 8 oz 106/73 Nega tive -?-?-?-?-?-?-?-?-?-?-?-?- Negative 158 -?-?-?-?-?-?-?-?-?-?-?-?- JV- pt still hav ing burning with urination. has leukocytes in urine. sending for culture. was treated last visit with amp, will try macrobid. NIPT normal. 04/16/23 -?-?-?-?-?--?-?-?-?-?-?-?- 16w 5d 199 lb 101/68 -?-?-?-?-?-?-?-?-?-?-?-?- 140 -?-?-?-?-?-?-?-?-?-?-?-?- KW-urine cx toda y. no vb/cramping. AFP discussed-US on 05/1405/14/23 -?-?-?-?-?-?-?-?-?-?-?-?- 20w 5d 204 lb 8 oz 110/68 Nega tive -?-?-?-?-?-?-?-?-?-?-?-?- Negative 143 -?-?-?-?-?-?-?-?-?--?-?-?- MH-Feeling movem ent. No VB, lof. Had anatomy US today. 06/11/23 -?-?-?-?-?-?-?-?-?-?-?-?- 24w 5d 211 lb 6 oz 103/70 Nega tive -?-?-?-?-?-?-?-?--?-?-?-?- Negative 152 -?-?-?-?-?-?-?-?-?-?-?-?- JV- pt is experi encing RUQ burning and also has mid back pain. will order RUQ scan. glucola at 28 weeks. 07/10/23 -?-?-?-?-?-?-?-?-?-?-?-?- 28w 6d 219 lb 112/72 Negative -?-?-?-?-?-?-?-?-?-?-?-?- Negative 151 28 -?-?-?-?-?-?-?-?-?-?-?-?- MH-No VB, LOF. G ood FM. Nl 28 wk labs. Tdap, flu, larc 07/26/23 -?-?-?-?-?-?-?-?-?-?-?-?- 31w 1d 220 lb 8 oz 106/72 Nega tive -?-?-?-?-?-?-?-?-?-?-?-?- Negative 145 32 -?-?-?-?-?-?-?-?-?-?-?-?- JV- pt states in the last couple of years she knows 4 people who lost baby's at term (one was a home test man delivery and one was a hospital test man delivery) she prefers doc only for delivery. No lof, vaginal bleeding, or dec fm. 08/10/23 -?-?-?-?-?-?-?-?-?-?-?-?- 33w 2d 227 lb 6 oz 135/82 Nega tive -?-?-?-?-?-?-?-?-?-?-?-?- Negative 130 34 -?-?-?-?-?-?-?-?-?-?-?-?- SM- no vb lof go od fm no reuglar ctx SM- no vb lof good fm no reu glar ctx, thyroid labs ordered 08/20/23 -?-?-?-?-?-?-?-?-?-?-?-?- 34w 5d 230 lb 2 oz 120/80 Nega tive -?-?-?-?-?-?-?-?-?-?-?-?- Negative 151 34 -?-?-?-?--?-?-?-?-?-?-?-?- JV- plan for 36 week growth scan. start NSTs at 37 weeks 09/03/23 -?-?-?-?-?-?-?-?-?-?-?-?- 36w 5d 234 lb 4 oz 125/84 Nega tive -?-?--?-?-?-?-?-?-?-?-?-?- Negative 150 36 Cephalic 0 -?-?-?-?-?-?-?-?-?-?-?-?- JV- 66th% growth , reactive nst. gbs collected. 09/11/23 -?-?-?-?-?-?-?-?-?-?-?-?- 37w 6d 232 lb 118/84 Negative -?-?-?-?-?-?-?-?-?-?-?-?- Negative 130 37 Cephalic 0 -?-?-?-?-?-?-?-?-?-?-?-?- -3 MH-NST r eactive. No VB, LOF. Good FM. No CTX. Feeling more pressure 09/19/23 -?-?-?-?-?-?-?-?-?-?-?-?- 39w 0d 234 lb 4 oz 120/80 Nega tive -?-?-?-?-?-?-?-?-?-?-?-?- Negative 140 39 Cephalic -?-?-?-?-?-?-?-?-?-?-?-?- JV- reactive nst . mitzi 14.iol set for 40 weeks NST FHR Rate Baby A Baseline: 130 Variability:: Moderate Accelerations:: 15 x 15 Decelerations:: None NST Reactive:: Yes FHR Category:: Category I Uterine Activity:: irregular ROS Constitutional Constitutional: Reports systems reviewed and no addt'l complaints, except as documented Eyes Eyes: Denies change in vision ENT HEENT: Reports systems reviewed and no addt'l complaints, except as documented; Denies headache(s) Cardiovascular Cardiovascular: Reports systems reviewed and no addt'l complaints, except as documented; Denies chest pain or dyspnea Respiratory/Chest Respiratory/Chest: Reports systems reviewed and no addt'l complaints, except as documented Gastrointestinal Gastrointestinal: Reports systems reviewed and no addt'l complaints, except as documented; Denies abdominal pain Genitourinary Genitourinary: Reports systems reviewed and no addt'l complaints, except as
--- NOTE | 2023-09-27 08:04 | PCM.HP.OB ---
HPI - General General Date of Admission: 09/26/23 HPI Narrative BINA CELIS, is a 33 F who presents for IOL secondary to obesity. no vb lof admits good fm no regular ctx prior to IOL. cytotec overnight and now pit and fb placed now. succenturiate placenta also present. Maternal Data Information LANI Calculator Estimated Delivery Date Method Current WG Current Estimate 09/26/23 LMP (Certain) 40w 1d PFSH PFSH Medical History (Updated 09/27/23 @ 08:[address] Iza Aragon MD) Anxiety Migraines Placental abnormality Home Medications docosahexaenoic acid 200 mg capsule ( DHA) 200 mg PO DAILY 02/22/23 [History Last Taken 09/26/23 08:00 200 mg] Allergy/AdvReac Type Severity Reaction Status Date / Time No Known Allergies Allergy Verified 09/26/23 19:32 Family History Father Heart disease Skin cancer Hypertension Esophageal cancer Mother Thyroid disorder Hypertension Sister Seizures Surgical History (Updated 09/26/23 @ 20:34 by Rosina Dale) [place] teeth extracted Social History adopted: No household members: spouse current occupational status: employed 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[employer] current occupational exposures/hazards: No pets and animals: Yes sexually active: Yes Smoking Status: Never smoker alcohol intake: current details: not while seatbelt use: always do you feel safe at home: Yes additional [facility] History 1 Elective abortions Hx Para 0 Spontaneous abortions Hx # Term Pregnancies Ectopic pregnancies Hx # Pregnancies Multiple births # of living children Visit Details Expected Delivery Route/Plan Labor Preferences- CB/BF classes: encouraged labor support person: Tc labor intervention preferences: [] pain management options preferred: epidural cut cord/dad catch: no : unsure PP control planned: discussed discussed possible routes of delivery and associated risks: [] special requests: [] Plans Covid status: vax X2 Flu vaccine: given Tdap vaccine: given Rhogam: NA LARC form signed: yes Problem list reviewed and updated with the most current plan of care details and appropriate orders placed. Relevant counseling for the gestational age provided. Continue routine care and follow up unless otherwise noted in visit notes/problem list details OB Flowsheet Initial Weight: Not Recorded Date <del>?</del> EGA Weight BP Urine Prot <del>?</del> Glucose FHR FuHt Pres Dilation <del>?</del> Effaced St Visit Note 02/22/23 <del>?</del> 9w 1d 193 lb 6 oz 113/78 <del>?</del> 160 <del>?</del> SM- CRL 2.4cm cons with LMP 03/23/23 <del>?</del> 13w 2d 195 lb 8 oz 106/73 Negative <del>?</del> Negative 158 <del>?</del> JV- pt still having burning with urination. has leukocytes in urine. sending for culture. was treated last visit with amp, will try macrobid. NIPT normal. 04/16/23 <del>?</del> 16w 5d 199 lb 101/68 <del>?</del> 140 <del>?</del> KW-urine cx today. no vb/cramping. AFP discussed-US on 05/1405/14/23 <del>?</del> 20w 5d 204 lb 8 oz 110/68 Negative <del>?</del> Negative 143 <del>?</del> MH-Feeling movement. No VB, lof. Had anatomy US today. 06/11/23 <del>?</del> 24w 5d 211 lb 6 oz 103/70 Negative <del>?</del> Negative 152 <del>?</del> JV- pt is experiencing RUQ burning and also has mid back pain. will order RUQ scan. glucola at 28 weeks. 07/10/23 <del>?</del> 28w 6d 219 lb 112/72 Negative <del>?</del> Negative 151 28 <del>?</del> MH-No VB, LOF. Good FM. Nl 28 wk labs. Tdap, flu, larc 07/26/23 <del>?</del> 31w 1d 220 lb 8 oz 106/72 Negative <del>?</del> Negative 145 32 <del>?</del> JV- pt states in the last couple of years she knows 4 people who lost baby's at term (one was a home sample tailor delivery and one was a hospital sample tailor delivery) she prefers doc only for delivery. No lof, vaginal bleeding, or dec fm. 08/10/23 <del>?</del> 33w 2d 227 lb 6 oz 135/82 Negative <del>?</del> Negative 130 34 <del>?</del> SM- no vb lof good fm no reuglar ctx SM- no vb lof good fm no reuglar ctx, thyroid labs ordered 08/20/23 <del>?</del> 34w 5d 230 lb 2 oz 120/80 Negative <del>?</del> Negative 151 34 <del>?</del> JV- plan for 36 week growth scan. start NSTs at 37 weeks 09/03/23 <del>?</del> 36w 5d 234 lb 4 oz 125/84 Negative <del>?</del> Negative 150 36 Cephalic 0 <del>?</del> JV- 66th% growth, reactive nst. gbs collected. 09/11/23 <del>?</del> 37w 6d 232 lb 118/84 Negative <del>?</del> Negative 130 37 Cephalic 0 <del>?</del> -3 MH-NST reactive. No VB, LOF. Good FM. No CTX. Feeling more pressure 09/19/23 <del>?</del> 39w 0d 234 lb 4 oz 120/80 Negative <del>?</del> Negative 140 39 Cephalic <del>?</del> JV- reactive nst. mitzi 14.iol set for 40 weeks NST FHR Rate Baby A Baseline: 130 Variability:: Moderate Accelerations:: 15 x 15 Decelerations:: None NST Reactive:: Yes FHR Category:: Category I Uterine Activity:: irregular ROS Constitutional Constitutional: Reports systems reviewed and no addt'l complaints, except as documented Eyes Eyes: Denies change in vision ENT HEENT: Reports systems reviewed and no addt'l complaints, except as documented; Denies headache(s) Cardiovascular Cardiovascular: Reports systems reviewed and no addt'l complaints, except as documented; Denies chest pain or dyspnea Respiratory/Chest Respiratory/Chest: Reports systems reviewed and no addt'l complaints, except as documented Gastrointestinal Gastrointestinal: Reports systems reviewed and no addt'l complaints, except as documented; Denies abdominal pain Genitourinary Genitourinary: Reports systems reviewed and no addt'l complaints, except as documented, contractions Details: present (irregular) and movement Details: present; Denies dysuria or genital lesions Musculoskeletal Musculoskeletal: Reports systems reviewed and no addt'l complaints, except as documented Neurologic Neurologic: Reports systems reviewed and no addt'l complaints, except as documented Endocrine Endocrinology: Reports systems reviewed and no addt'l complaints, except as documented Vital Signs Vital Signs Vital Signs: 09/26/23 19:25 09/26/23 19:25 09/26/23 19:28 Temperature Temperature Source Pulse Rate 93 Blood Pressure 137/89 H BP Systolic 137 BP Diastolic 89 Pulse Ox 98 09/26/23 19:28 09/26/23 19:25 09/26/23 19:25 Temperature Temperature Source Temporal Pulse Rate 91 93 Blood Pressure BP Systolic BP Diastolic Pulse Ox 09/26/23 19:25 09/26/23 19:25 09/27/23 00:02 Temperature 97.7 F L Temperature Source Pulse Rate Blood Pressure 141/73 H BP Systolic 141 BP Diastolic 73 Pulse Ox 98 09/27/23 00:02 09/27/23 00:02 09/27/23 00:02 Temperature Temperature Source Temporal Pulse Rate 71 Blood Pressure BP Systolic BP Diastolic Pulse Ox 97 09/27/23 00:02 09/27/23 00:02 09/27/23 00:02 Temperature 97.2 F L Temperature Source Pulse Rate 72 Blood Pressure BP Systolic BP Diastolic Pulse Ox 97 09/27/23 00:04 09/27/23 00:04 09/27/23 01:05 Temperature Temperature Source Pulse Rate 59 L Blood Pressure 137/70 H 143/69 H BP Systolic 137 143 BP Diastolic 70 69 Pulse Ox 09/27/23 01:05 09/27/23 01:05 09/27/23 01:05 Temperature Temperature Source Temporal Pulse Rate 67 Blood Pressure BP Systolic BP Diastolic Pulse Ox 98 09/27/23 01:05 09/27/23 03:52 09/27/23 03:52 Temperature 98.3 F Temperature Source Temporal Pulse Rate Blood Pressure 136/79 H BP Systolic 136 BP Diastolic 79 Pulse Ox 09/27/23 03:52 09/27/23 03:52 09/27/23 03:52 Temperature 97.5 F L Temperature Source Pulse Rate 55 L Blood Pressure BP Systolic BP Diastolic Pulse Ox 97 09/27/23 07:26 09/27/23 07:26 09/27/23 07:28 Temperature Temperature Source Pulse Rate 59 L Blood Pressure 187/106 H 172/80 H BP Systolic 187 172 BP Diastolic 106 80 Pulse Ox 09/27/23 07:28 09/27/23 07:43 09/27/23 07:43 Temperature Temperature Source Pulse Rate 51 L 63 Blood Pressure 152/76 H BP Systolic 152 BP Diastolic 76 Pulse Ox Weight Weight: 236 lb 4 oz Body Mass Index (BMI) 40.5 Physical Exam Const alert, oriented x3, no apparent distress and healthy appearing HEENT normocephalic and moist oral mucous membranes Head and Scalp: atraumatic Neck full ROM, no lymphadenopathy, supple and thyroid normal General: trachea midline Lymph Lymphatic: no lymphadenopathy noted Chest inspection of chest normal Resp normal respiratory effort Cardio regular rate GI normal to inspection, nondistended, normoactive bowel sounds, soft to palpation and non-tender Inspection: gravid external exam normal Manual OB Exam: estimated gestational size appropriate, presentation cephalic, dilated, effaced and station Extremity normal to inspection General Extremity: Negative for edema Skin no rashes or lesions noted Neuro no focal motor deficits and deep tendon reflexes 2+ bilaterally Motor Exam: strength 5/5 throughout and clonus absent Psych mental status grossly normal Labs Labs Labs: Blood Type A POSITIVE Antibody Screen NEGATIVE Hct 36.4 % (37-47) L Hgb 12.3 g/dL (12.0-15.0) Obstetrics Ultrasound Syphilis Total Ab Non-reactive Rubella IgG Antibody Reactive (Nonreactive) Hep Bs Antigen Non-Reactive (Nonreactive) Hepatitis C Antibody Non-Reactive (Nonreactive) Chlamydia DNA (GISSELLE) Negative (Negative) N.gonorrhoeae DNA (GISSELLE) Negative (Negative) HIV 1&2 Antibody Non-Reactive (Nonreactive) Glucose 1 Hr 50 gm 106 mg/dL (70-140) Assessment & Plan (1) Placenta succenturiata: QUALIFIERS: Trimester: third trimester Qualified Code(s): O43.193 - Other malformation of placenta, third trimester (2) Anxiety: COMMENT: close friend recently had demise of full term . Stable (3) UTI in : QUALIFIERS: Trimester: third trimester Qualified Code(s): O23.43 - Unspecified infection of urinary tract in , third trimester COMMENT: repeat urine culture negative. (4) Thyromegaly: COMMENT: had evaluation in the last year- obtain records from [facility], no medicine in the past (5) Obesity affecting : QUALIFIERS: Trimester: third trimester Obesity type affecting : unspecified obesity Qualified Code(s): O99.213 - Obesity complicating , third trimester COMMENT: 1 TM GCT. encouraged healthy weight gain start 37 week NSTs (6) Supervision of normal first : QUALIFIERS: Trimester: third trimester Qualified Code(s): Z34.03 - Encounter for supervision of normal first , third trimester COMMENT: DOC ONLY [id number] LANI 09/26/23 Girl Tc (7) : QUALIFIERS: Weeks of gestation: 39 weeks Qualified Code(s): Z3A.39 - 39 weeks gestation of COMMENT: GBS neg. NIPT LR carrier screening declined. Anatomy US NL (8) Migraines: QUALIFIERS: Migraine type: unspecified Status migrainosus presence: without status migrainosus Intractability: not intractable Qualified Code(s): G43.909 - Migraine, unspecified, not intractable, without status migrainosus (9) Encounter for induction of labor: PLAN: Plan Patient presents IOL, plan management for with cytotec, then fb/pitocin/AROM. Pain management: plans epidural. GBS negative. Management of any complications: see a/p comments I have reviewed the [facility] and made any clinically relevant updates.
[2023-09-27] MEDS: Ondansetron 4 MG/2 ML Vial IV ×2 (08:13→17:15)
[2023-09-27] MEDS: Oxytocin 15 Units/NS 250ml 15 UNITS/250 ML IV.SOLN 2 UNITS IV (08:34)
[2023-09-27] MEDS: Acetaminophen 500 MG Tablet PO ×2 (09:59→21:34)
[2023-09-27] MEDS: fentaNYL-bupivacaine (epidural) 100 ML BAG EPIDURAL ×2 (11:15→20:04)
[2023-09-27] MEDS: 0.9% Saline Lock 10 ML Syringe IV ×2 (14:47→21:34)
[2023-09-27] MEDS: Lactated Ringers 1,000 ML 200 ML IV ×2 (15:07→20:05)
--- NOTE | 2023-09-27 18:24 | PN_ITS ---
Progress Note pt is laying on her side. epidural is in place and she is comfortable. current tracing: FHT: minimal to Moderate variability reactive no decelerations category II/ I tracing now with more accelerations present [place]: q 1 min Contractions cx: 5/80/-1 IUPC has blood within it and FSC is on the cervix. both removed and replaced. fluid in the catheter is now light meconium stained and there is some dark maroon blood present (mild) A/P: [ ] unable to increase pitocin due to tachysystole planning to discuss with patient next step. Has been 6 hours without cervical change.
[2023-09-28] VITALS (45 sets, daily range): BP systolic 124–165; BP diastolic 51–105; PULSE 51–148; RESP 14–16; TEMP 36.3–38.9; O2SAT 94–100
[2023-09-28] MEDS: fentaNYL-bupivacaine (epidural) 100 ML BAG EPIDURAL (00:49)
[2023-09-28] MEDS: Lactated Ringers 1,000 ML 200 ML IV (00:49)
[2023-09-28] MEDS: Methylergonovine 0.2 MG/ML Ampul 0.200000000000000011 MG IM (06:05)
[2023-09-28] MEDS: Oxytocin 15 Units/NS 250ml 15 UNITS/250 ML IV.SOLN 334 UNITS IV (06:17)
--- NOTE | 2023-09-28 07:06 | EX.PCM.OBRPT ---
Assessment & Plan (1) Encounter for induction of labor: (2) Placenta succenturiata: QUALIFIERS: Trimester: third trimester Qualified Code(s): O43.193 - Other malformation of placenta, third trimester (3) Anxiety: COMMENT: close friend recently had demise of full term infant. Stable (4) UTI in : QUALIFIERS: Trimester: third trimester Qualified Code(s): O23.43 - Unspecified infection of urinary tract in , third trimester COMMENT: repeat urine culture negative. (5) Thyromegaly: COMMENT: had evaluation in the last year- obtain records from [facility], no medicine in the past (6) Obesity affecting : QUALIFIERS: Trimester: third trimester Obesity type affecting : unspecified obesity Qualified Code(s): O99.213 - Obesity complicating , third trimester COMMENT: 1 TM GCT. encouraged healthy weight gain start 37 week NSTs (7) Supervision of normal first : QUALIFIERS: Trimester: third trimester Qualified Code(s): Z34.03 - Encounter for supervision of normal first , third trimester COMMENT: DOC ONLY [id number] LANI 09/26/23 Girl Tc (8) : QUALIFIERS: Weeks of gestation: 39 weeks Qualified Code(s): Z3A.39 - 39 weeks gestation of COMMENT: GBS neg. NIPT LR carrier screening declined. Anatomy US NL (9) Migraines: QUALIFIERS: Migraine type: unspecified Status migrainosus presence: without status migrainosus Intractability: not intractable Qualified Code(s): G43.909 - Migraine, unspecified, not intractable, without status migrainosus (10) Vacuum-assisted vaginal delivery: COMMENT: VAVD girl Christy 40 IOL obesity Maternal Data Information LANI Calculator Estimated Delivery Date Method Current WG Current Estimate 09/26/23 LMP (Certain) 40w 2d Vaginal Delivery Operative Information Date of Procedure: 09/28/23 Pre-Operative Diagnosis: see a/p diagnoses Post-Operative Diagnosis: same Surgery / Procedure Performed: Vacuum Assisted Vaginal Delivery Type of Anesthesia: Epidural and Pudendal Block Special Medications: none Estimated Blood Loss: 300 Fluids Replaced: crystalloid Findings Description of Procedure: after four hours of pushing head was +3 to +4 station, having significant pain with difficulty pushing, so pudendal block placed. betadine prepped vagina, bilateral ischial spines identified and 2 cm medial and posterior 10 cc lidocaine injected without complication. Patient began pushingagain and tachycardia with minimal variabilty noted, recurrent variables. positive scalp stim was noted but decision for vacuum application was done. vacuum applied and 2 pulls with no pop offs with two contractions, small midline episiotomy cut, and she delivered the head in the sophia presentation. The head was delivered atraumatically and a loose nuchal cord ?1 was identified and the delivered through without complication. The anterior and posterior shoulders delivered without complication followed by the rest of the and the was placed on the maternal abdomen. Cord was clamped and cut and gentle traction was applied to the cord and the placenta delivered spontaneously immediately following it was noted to be intact with three-vessel cord. The perineum and vagina were inspected and noted to have a second degree perineal laceration which was repaired in the usual fashion with 3-0 vicryl rapide. noted to have no laceration. EBL was 300. Patient and tolerated delivery well. Amniotic Fluid Description: Thick meconium Placental Delivery Description: Spontaneous Placenta Disposition: [facility] Cord Vessel Description: 3 Vessels Cord Entanglement: None Delayed Cord Clamping: No Post Vaginal Delivery Medications Given After Delivery: IV Pitocin Episiotomy Description: None Complication Complications: None Procedures Urinary/Genital [id number]: [id number] Vaginal Delivery [facility]
--- NOTE | 2023-09-28 07:11 | DCINST_ITS ---
Discharge Instructions Diet Discharge Diet: No restrictions Activity Discharge Activity: Return to Normal Activity, May Not Drive (while taking narcotic pain medications.) and May Shower May resume sexual activity in: 4-6 weeks Dressing / Incision Call your doctor if your incision/area has: Continuous Slow Oozing, Sudden Increased Bleeding, Increased Pain/ Swelling, Increased Redness and Foul Smelling Discharge Follow Up Care Please Follow Up With: Iza Aragon MD When: Call [phone] to make an appointment with your doctor in 6 weeks. If you had elevated blood pressure or 4th degree laceration, you will need to be seen in 2 weeks. Test Results: Test results from this visit will be discussed in further detail at your follow- up appointment, if applicable. Discharge Plan Admission Admit Date/Time: 09/26/23 19:00 Attending Provider: Iza Aragon Primary Care Provider: Duncan Spicer Discharge Orders/Prescriptions Prescriptions: No Action DHA 200 mg capsule 200 mg PO DAILY Referrals / Follow Up: Duncan Spicer MD [Primary Care Provider] - Disposition Disposition (needs filled in before D/C Order can be placed): Home, Self Care
[2023-09-28] MEDS: Lidocaine 1% (20 ml mdv) 20 ML Vial INFILT (07:54)
[2023-09-28] MEDS: Cefazolin 2 GM in 0.9% Normal Saline (100mL Bag) 100 ML IV (08:47)
[2023-09-28] MEDS: 0.9% Saline Lock 10 ML Syringe IV (08:49)
--- NOTE | 2023-09-28 15:41 | CASEMGMT ---
Social Work Assessment Labor and Delivery Unit Patient Address: [place] [address] Phone number: [phone] Date of Referral: 09/28/23 Time of Referral:? [phone] Referred By: Iza Aragon Date of Intervention: ??09/28/23 Time of Intervention:? 1500 Reason for Referral:? anxiety Sw completed chart review and acknowledges social work consult due to maternal mental health history of anxiety. Sw presented to bedside and introduced self to mother of baby (MOB- Cyndie) and father of baby (FOB- Tc). Maternal grandma also present at bedside, sw offered to return at another time, MOB stated it was ok to complete psychosocial assessment. History obtained from: medical records, MOB and FOB Household composition: Currently residing in the home is MOB, FOB and now baby. Parents deny any issues or concerns with their current housing. Patient's parent/guardian status:?Parents have been together for 6 years. No concerns regarding domestic violence or intimate partner violence. Medical History: ?SILVER is 33 year old female who is 1, para 0- now 1 following labor and delivery of . SILVER received routine care with [facility] during . SILVER presented to hospital for an induction of labor on 09/26, and delivered baby via vaginal delivery on 09/28/23. Baby girl, named Christy, was born weighing 7lb 14oz and her apgars were 6, 8 and 8 at one, five and ten minutes of life respectfully. SILVER is bottle feeding baby and states that she does hope to pump and provide milk for baby. Baby will be followed by Dr. Pierson at [facility]. Educational Status:? Parents graduated from high school. FOB obtained a Bachelors degree and MOB attended some college but did not graduate. Financial Status: Both parents are employed outside of the home. 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 Both parents are able to take time off for maternity/ paternity leave now that baby has been born. Infant Supplies: All necessary baby supplies have been obtained, including: car seat, safe sleep space, clothes, diapers and wipes. ?? Childcare/Caregiver(s):? MOB will be the primary caregiver to baby along with FOB when he is not at work. Maternal aunt will be a patient sitter for baby when both parents are at work. Transportation:??No barriers. Programs/Agencies Involved: ???Parents are not connected to any community resources that assist them financially at this time. Children Services/Legal Issues:??NO history of involvement, no issues or concerns warranting referral to be made at this time. ? Behavioral Health Issues: ??Mental Health History:?FOB denies any mental health diagnoses. MOB states that she has been diagnosed with anxiety. MOB states that she has several friends who experienced late term losses, some at time of delivery and this has significantly impacted her and made her extremely anxious leading up to delivery and during delivery. ?? Substance Use History:?MOB denies substance use prior to and during . ? Family History: Parents deny family history of addiction or significant mental health diagnoses. ? Drug Screens: No drug screens observed during chart review.?? Family/Social Stressors:? Parents deny any issues or concerns at this time. Support Systems: MOB states that both sets of grandmas are supportive as well as her sister. Depression/Shaken Baby/Safe Sleeping:? Sw educated parents on signs and symptoms of baby blues and depression and anxiety. Parents expressed understanding. Sw provided parents with literature to review that also includes list of appropriate coping skills to utilize should MOB struggle during her period. Sw educated parents on shaken baby prevention and ABCs of safe sleep. Parents express understanding. ASSESSMENT:? MOB and baby admitted following labor and delivery of . MOB and FOB both observed to provide appropriate and loving hands on care of . MOB open and talkative during assessment, FOB somewhat more reserved. MOB with mental health history positive for anxiety. MOB states that she is knowledgeable about signs and symptoms of baby blues and anxiety/ depression to be on the look out for. MOB states that FOB is her biggest support person and would know how to help her if she were to struggle. PLAN:? MOB and baby to be discharged when medically ready ?No other services requested or indicated. Narda Holder, DIRECTOR STAGE, BRIEF WRITER
[2023-09-28] MEDS: Naproxen 500 MG Tablet PO (16:23)
[2023-09-28] MEDS: Senna/Docusate Sodium 1 Tablet PO (16:23)
[2023-09-29] VITALS (12 sets, daily range): BP systolic 131–140; BP diastolic 68–73; PULSE 50–73; RESP 16–18; TEMP 36.4–36.8; O2SAT 96–99
--- NOTE | 2023-09-29 10:37 | PCM.PN.OB ---
Subjective Subjective Patient doing well without complaints. Tolerating PO. Ambulating and voiding without difficulty. Feeding well. Denies chest pain, shortness of breath, calf pain/swelling, fevers, chills, lightheadedness. Objective Data Objective Data Vital Signs: Vital Signs Temp Pulse Resp BP Pulse Ox O2 Del Method 97.9 F 61 16 131/68 H 99 Room Air 09/29/23 08:00 09/29/23 08:00 09/29/23 08:00 09/29/23 08:00 09/29/23 08:00 09/29/23 08:00 Oxygen Delivery Method Room Air Weight: 236 lb 4 oz Body Mass Index (BMI) 40.5 Intake & Output: Intake and Output for Last 24 Hours 09/27/23 09/28/23 09/29/23 23:59 23:59 23:59 Intake Total 3085.10 / 3085.10 2864.90 / 2864.90 Output Total 1800 / 1800 300 / 300 Balance 1285.10 / 1285.10 2564.90 / 2564.90 Lab / Micro Data 09/26/23 19:30 Physical Exam Const alert and no apparent distress Neck full ROM Lymph Lymphatic: no lymphadenopathy noted Resp normal respiratory effort, normal air movement and no retractions Cardio regular rate and regular rhythm GI normal to inspection, nondistended, normoactive bowel sounds Uterus Palpation: uterus fundus firm Extremity normal to inspection and full ROM Skin no rashes or lesions noted Psych mental status grossly normal Assessment & Plan (1) Anxiety: COMMENT: close friend recently had demise of full term infant. Stable (2) Vacuum-assisted vaginal delivery: COMMENT: SM VAVD girl Christy 40 IOL obesity PLAN: Plan s/p PPD # 1 1. routine post delivery care 2. breast feeding- support given 3. rh positive 4. rubella immune 5. desires d/c home tomorrow
[2023-09-29] MEDS: Senna/Docusate Sodium 1 Tablet PO (16:02)
[2023-09-30 02:00] VITALS: BP 128/79; PULSE 70; RESP 16; TEMP 36.2; O2SAT 100
[2023-09-30 02:27] VITALS: BP 128/79; PULSE 57
--- NOTE | 2023-09-30 09:13 | PCM.PN.OB ---
Subjective Subjective Patient doing well without complaints. Tolerating PO. Ambulating and voiding without difficulty. Feeding well, pumping for stimulation, primarily formula feeding, desires to bottle feed only to know amount of feeds, but would like to increase breastmilk provided. Denies chest pain, shortness of breath, calf pain/swelling, fevers, chills, lightheadedness. Objective Data Objective Data Vital Signs: Vital Signs Temp Pulse Resp BP Pulse Ox O2 Del Method 97.2 F L 57 L 16 128/79 H 100 Room Air 09/30/23 02:00 09/30/23 02:27 09/30/23 02:00 09/30/23 02:27 09/30/23 02:00 09/30/23 02:00 Oxygen Delivery Method Room Air Weight: 236 lb 4 oz Body Mass Index (BMI) 40.5 Intake & Output: Intake and Output for Last 24 Hours 09/28/23 09/29/23 09/30/23 23:59 23:59 23:59 Intake Total 2864.90 / 2864.90 Output Total 300 / 300 Balance 2564.90 / 2564.90 Lab / Micro Data 09/26/23 19:30 Physical Exam Const alert and no apparent distress Neck full ROM Lymph Lymphatic: no lymphadenopathy noted Resp normal respiratory effort, normal air movement and no retractions Cardio regular rate and regular rhythm GI normal to inspection, nondistended, normoactive bowel sounds Uterus Palpation: uterus fundus firm Extremity normal to inspection and full ROM Skin no rashes or lesions noted Skin Narrative: 2cm wound from mole removal. no redness/tenderness. no drainage noted. Psych mental status grossly normal Assessment & Plan (1) Vacuum-assisted vaginal delivery: COMMENT: SM VAVD girl Christy 40 IOL obesity (2) Anxiety: COMMENT: close friend recently had demise of full term . Stable PLAN: Plan s/p PPD # 2 1. routine post delivery care 2. breast feeding- support given. reviewed hand expression. has LC appointment tomorrow. 3. rh positive 4. rubella immune 5. d/c home today
--- NOTE | 2023-09-30 09:15 | PCM.DC.SUM ---
Providers Date of Admission: 09/26/23 Primary Care Physician: Dr. Duncan Spicer MD Reason For Visit: VAG Diagnosis Discharge Diagnosis (1) Vacuum-assisted vaginal delivery: Status: Acute Code(s): Z37.9 - Outcome of delivery, unspecified (2) Anxiety: Status: Acute Code(s): F41.9 - Anxiety disorder, unspecified Plan s/p PPD # 2 1. routine post delivery care 2. breast feeding- support given. reviewed hand expression. has LC appointment tomorrow. 3. rh positive 4. rubella immune 5. d/c home today Medications at Discharge Home Medications docosahexaenoic acid 200 mg capsule ( DHA) 200 mg PO DAILY 02/22/23 Hospital Course Operations None Procedures None Summary of Care Provided Minutes Spent on Discharge: 20 Hospital Course: pt with IOL for obesity resulting in VAVD, uncomplicated pp course. Physical Exam Const alert and no apparent distress Neck full ROM Lymph Lymphatic: no lymphadenopathy noted Resp normal respiratory effort, normal air movement and no retractions Cardio regular rate and regular rhythm GI normal to inspection, nondistended, normoactive bowel sounds Uterus Palpation: uterus fundus firm Extremity normal to inspection and full ROM Skin no rashes or lesions noted Skin Narrative: 2cm wound from mole removal. no redness/tenderness. no drainage noted. Psych mental status grossly normal Weight / BMI Weight Weight: 236 lb 4 oz Body Mass Index (BMI) 40.5 ABG / Lab / Microbiology Data 09/26/23 19:30 D/C Instructions Discharge Diet: No restrictions May resume sexual activity in: 4-6 weeks Call your doctor if your incision/area has: Continuous Slow Oozing, Sudden Increased Bleeding, Increased Pain/ Swelling, Increased Redness and Foul Smelling Discharge Please Follow Up With: Iza Aragon MD When: Call [phone] to make an appointment with your doctor in 6 weeks. If you had elevated blood pressure or 4th degree laceration, you will need to be seen in 2 weeks. Meaningful Use Info Meaningful Use Diagnoses (Choose all that apply): None applicable Discharge Plan Admission Admit Date/Time: 09/26/23 19:00 Attending Provider: Iza Aragon Primary Care Provider: Duncan Spicer Discharge Orders/Prescriptions Prescriptions: No Action DHA 200 mg capsule 200 mg PO DAILY Referrals / Follow Up: Duncan Spicer MD [Primary Care Provider] - Disposition Disposition (needs filled in before D/C Order can be placed): Home, Self Care
[2023-09-30 09:45] VITALS: BP 131/69; BP 142/95; PULSE 75; RESP 14; TEMP 36.2; O2SAT 97
[2023-09-30 09:46] VITALS: BP 149/94; PULSE 74
[2023-09-30 09:47] VITALS: BP 131/69; PULSE 62
[2023-09-30] MEDS: Senna/Docusate Sodium 1 Tablet PO (10:21)
== END 2023-09-30 10:55 | disposition home or self-care (01) | DRG 806 ==
PROVIDERS: Obstetrics & Gynecology; Admitting Provider Obstetrics & Gynecology; PCP Family Medicine; Referring Provider Obstetrics & Gynecology; Visit Provider Obstetrics & Gynecology
DX: O76 Abnormality in fetal heart rate and rhythm complicating labor and delivery (principal); Z37.0 Single live birth; O99.354 Diseases of the nervous system complicating childbirth; G43.901 Migraine, unspecified, not intractable, with status migrainosus; F41.9 Anxiety disorder, unspecified; E66.9 Obesity, unspecified; O70.1 Second degree perineal laceration during delivery; O69.81X0 Labor and delivery complicated by cord around neck, without compression, not applicable or unspecified; O99.213 Obesity complicating pregnancy, third trimester; O77.0 Labor and delivery complicated by meconium in amniotic fluid; O99.284 Endocrine, nutritional and metabolic diseases complicating childbirth; Z87.440 Personal history of urinary (tract) infections; O43.193 Other malformation of placenta, third trimester; O99.344 Other mental disorders complicating childbirth; Z3A.39 39 weeks gestation of pregnancy
CPT/HCPCS: 59025; 59050; 85025; 86780; 86850; 86900; 86901; 99221; J7120; A4216; G0378; J2405

== ENCOUNTER → 2024-12-17 | Outpatient (CLI) | payer BC, SELFPAY ==
[2024-12-17 12:09] LABS: Absolute Lymphocyte Count 0.84 X10^3/uL (0.83-4.51); Absolute Neutrophil Count 3.1 X10^3/uL (2.0-7.7); Basophil# 0.04 X10^3/uL; Basophil% 0.9 % (0-1); Eosinophil# 0.13 X10^3/uL; Eosinophils% 2.9 % (0-5); Hematocrit 39.6 % (37-47); Hemoglobin 13.4 g/dL (12.0-15.0); Lymphocyte # 0.84 X10^3/ul (0.83-4.51); Lymphocyte % 18.8 % (19-41); Mean Corp Hgb Conc 33.8 g/dL (32-36); Mean Corpuscular Hgb 30.8 pg (27.0-32.0); Mean Platelet Vol. 9.9 fl (6.2-12.0); Monocyte# 0.36 X10^3/uL; Monocyte% 8.1 % (0-10); NRBC Flagged by Analyzer 0 % (0-5); Neutrophil # 3.08 X10^3/uL (2.7-7.7); Neutrophil % 69.1 % (47-70); Platelet Count 227 K/mm3 (150-450); RBC Distribution Width SD 40.6 fl (35.1-43.9); Red Blood Count 4.35 M/mm3 (4.2-5.4); White Blood Count 4.5 K/mm3 (4.4-11.0)
[2024-12-17 12:51] LABS: ALB/GLOB Ratio 1.5 RATIO (0.9-2.4); AST(SGOT) 17 U/L (<=31); Alanine Aminotransfer ALT/SGPT 14 U/L (<=34); Albumin, Serum 4.2 g/dL (3.5-5.0); Alkaline Phosphatase 41 U/L (35-104); Anion Gap 9 (5-15); BUN 10 mg/dL (4-19); BUN/Creat Ratio 14.5 RATIO (10-20); Calcium,Total 9.5 mg/dL (7.6-11.0); Carbon Dioxide 26.4 mmol/L (21.0-32.0); Chloride 102 mmol/L (98-108); Creatinine, Serum 0.71 mg/dL (0.70-1.20); EST Glomerular Filtration Rate 115 (>60); Globulin 2.8 g/dL (2.2-4.2); Glucose 79 mg/dL (70-99); Potassium 3.9 mmol/L (3.3-5.1); Sodium Level 137 mmol/L (133-145)
[2024-12-17 12:54] LABS: Vitamin B12 390 pg/mL (180-914); Vitamin D,25 Hydroxy 31.1 ng/mL (30-100)
[2024-12-22 10:07] LABS: HPV APTIMA, High Risk Negative (Negative)
== END | disposition home or self-care (01) ==
PROVIDERS: PCP Family Medicine; Referring Provider Nurse Practitioner Family; Visit Provider Nurse Practitioner Family
DX: E04.9 Nontoxic goiter, unspecified (principal); R53.83 Other fatigue; Z12.4 Encounter for screening for malignant neoplasm of cervix
CPT/HCPCS: 36415; 80053; 82306; 82607; 84439; 84443; 85025; 87624; 88175; G0145

== ENCOUNTER → 2024-12-23 | Outpatient (CLI) | payer BC, SELFPAY ==
--- NOTE | 2024-12-23 13:00 | US_ITS ---
PROCEDURE: THYROID 12/23/2024 REASON FOR EXAM: DIFFUSELY ENLARGED THYROID TECHNIQUE: High-frequency thyroid ultrasound, including grayscale and color-flow images. REFERENCE LINKS: TI-RADS Chart: [email or web address] TI-RADS Calculator Tool with Reference Images: [email or web address]/[email or web address]/ COMPARISON: None FINDINGS: Right thyroid lobe size: 5.3 cm x 1.8 cm x 1.4 cm Left thyroid lobe size: 4.2 cm x 1.6 cm x 1.3 cm Isthmus: 2.6 mm cm Background parenchymal echotexture is homogeneous. Nodules: . Lobe: Right, Location: 0.7 cm x 0.7 cm 5.4, Size: 7 mm cm, Stability: N/A Composition: Cystic or mostly cystic (+0) Echogenicity: Anechoic (+0) Margin: Smooth (+0) Shape: Wider than tall (+0) Echogenic Foci: None (+0) TI-RADS: <2 = TR 1 * 2 = TR 2 * 3 = TR 3 * 4-6 = TR 4 * >6 = TR 5 . Lobe: Right, Location: Inferior pole, Size: 0.7 cm x 0.6 cm 0.4 cm, Stability: N/A Composition: Cystic or mostly cystic (+0) Echogenicity: Anechoic (+0) Margin: Smooth (+0) Shape: Wider than tall (+0) Echogenic Foci: None (+0) TI-RADS: <2 = TR 1 * 2 = TR 2 * 3 = TR 3 * 4-6 = TR 4 * >6 = TR 5 US/Thyroid IMPRESSION: Subcentimeter cysts in the right lobe. Diffuse enlargement of the right lobe of the thyroid. Follow-up in 12 months. RECOMMENDATION: Based on most suspicious nodule. Nodule size = largest diameter Only evaluate nodule if =>5 mm. Growth > 20% in 2 dimensions = worsening. Follow up to 4 nodules. Recommend biopsy for no more than 2 nodules. Reading Location: [place] [address]
== END | disposition home or self-care (01) ==
LOC: US 12:59
PROVIDERS: PCP Family Medicine; Referring Provider Nurse Practitioner Family; Visit Provider Nurse Practitioner Family
DX: E01.0 Iodine-deficiency related diffuse (endemic) goiter (principal)
CPT/HCPCS: 76536

== ENCOUNTER 2025-05-04 08:45 | Day surgery (SDC) | payer BC, SELFPAY ==
[2025-05-04] VITALS (9 sets, daily range): BP systolic 90–118; BP diastolic 48–83; PULSE 48–74; RESP 16–18; TEMP 36.6–37.1; O2SAT 100; BMI 32.2
[2025-05-04 09:11] LABS: Internal QC Validated? YES +Cl - CLEAR BKGD; Pregnancy, Urine Negative Negative; Record Kit Lot#,Urine Preg 0000964736
[2025-05-04] MEDS: Lactated Ringers 1,000 ML 15 ML IV (09:18)
--- NOTE | 2025-05-04 09:28 | PCM.PRE.AN2 ---
ASA Classification* ASA Classification ASA Classification: 2 Assessment & Plan Anesthesia* Anesthesia Assessment Anesthesia Assessment: Discussed sedation and/or anesthesia options, risks, benefits, and alternatives with patient/parents/legal guardian/POA. Questions invited. The patient/parents/legal guardian/POA seems to understand and agrees to proceed with anesthesia plan. Reviewed the physical assessment, medical history, allergy history and patient home medications list prior to surgery/procedure/anesthetic and documented any changes. Performed airway and anesthesia risk assessments. Anesthesia Type Anesthesia Type: MAC History Source History Obtained from:: Patient and Chart Anesthesia Focused Assessment* Temperature: 97.8 F Pulse Rate: 74 Blood Pressure: 118/83 Respiratory Rate: 18 Pulse Ox: 100 Oxygen Delivery Method: Room Air Airway Assessment Mouth opens: >3 cm Mallampati Score: II Neck Range of motion (ROM): Full ROM Labs Anesthesia Preop lab: CBC WBC, (4.4-11.0) 4.5 K/mm3 12/17/24, 09:37 RBC, (4.2-5.4) 4.35 M/mm3 12/17/24, 09:37 Hgb, (12.0-15.0) 13.4 g/dL 12/17/24, 09:37 Hct, (37-47) 39.6 % 12/17/24, 09:37 Plt Count, (150-450) 227 K/mm3 12/17/24, 09:37 CHEMISTRY Potassium, (3.3-5.1) 3.9 mmol/L 12/17/24, 09:37 Sodium, (133-145) 137 mmol/L 12/17/24, 09:37 BUN, (4-19) 10 mg/dL 12/17/24, 09:37 Creatinine, (0.70-1.20) 0.71 mg/dL 12/17/24, 09:37 Glucose, (70-99) 79 mg/dL 12/17/24, 09:37 TSH, (0.300-4.200) 1.620 uIU/mL 12/17/24, 09:37 COAG HCG, Quant, (1-3) 56963 mIU/mL H 01/29/23, 08:36 Urine Test Negative Negative Today, 09:00 Pre-Assessment Diagnosis/Proposed Procedure Planned Operative Procedure(s): COLONOSCOPY Anesthesia History Anesthesia History - die keeper: Anesthesia History - die keeper Hx Hospitalization No 04/29/25 14:14 Any Problems With Anesthesia No 04/29/25 14:14 Cholinesterase deficiency No 04/29/25 14:14 You/Your Family Experience No 04/29/25 14:14 fever (hyperthermia) with Relationship Recent Exposure to Contagious No 05/04/25 09:09 Disease Does patient have nerve No 04/29/25 14:14 stimulator Patient instructed to have device shut off --Does patient have Pacemaker No 05/04/25 09:09 or ICD? When Was Last Pacemaker Check QUESTION #4 FULL TEXT: You/Your Family Experience fever (hyperthermia) with Anesthesia Last Oral Intake Last Oral intake: Last Oral Intake NPO since 00:00 05/04/25 09:09 Meds taken in AM with sips of water? Meds patient instructed to take am of surgery PONV PONV - die keeper: PONV - die keeper Female Yes 04/29/25 14:14 HX of Motion Sickness No 04/29/25 14:14 HX of N/V After Surgery No 04/29/25 14:14 Non-Smoker Yes 04/29/25 14:14 Duration of Surgery greater No 04/29/25 14:14 than 60 minutes Number of Risk Factors 2 04/29/25 14:14 PONV Score Moderate Risk 04/29/25 14:14 Height & Weight Height & Weight: Anesthesia: Height & Weight Height 5 ft 4 in 05/04/25 09:09 Weight: 85.2 kg 05/04/25 09:09 Body Mass Index (BMI) 32.2 05/04/25 09:09 Respiratory Assessment Respiratory Assessment - die keeper: Respiratory Tract Infection Hx - die keeper Hx Respiratory Tract Infection No 04/29/25 14:14 STOP Sleep Apnea STOP Sleep Apnea - die keeper: STOP Sleep Apnea - die keeper Hx Hypertension No 04/29/25 14:14 Hx Sleep Apnea No 04/29/25 14:14 CPAP BIPAP Do you snore loudly (louder No 04/29/25 14:14 than talking or can be heard Do you often feel tired/ No 04/29/25 14:14 fatigued/ sleepy during daytime? Has anyone observed you stop No 04/29/25 14:14 breathing during sleep? STOP Results Negative 04/29/25 14:14 QUESTION #5 FULL TEXT : Do you snore loudly (louder than talking or can be heard through closed doors)? 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 Specify any problems Hx of Preganancy in last 3 No 04/29/25 14:14 Months Nurse Filling Out Transfusion VLEHMAN 04/29/25 14:14 & Questions: Date: 04/29/25 04/29/25 14:14 Time: 14:19 04/29/25 14:14 Patient unable to answer at this time (ie. confused, unrespo /Reproduction History /Reproductive History - die keeper: /Reproductive Hx- die keeper Hx Now No 04/29/25 14:14 Gestational Age (in weeks): EDC: Hx Hx Para Hx Section SAB No 04/29/25 14:14 Active Medications Active Medications: Current Medications Generic Name Dose Route Start Last Admin Trade Name Beka PRN Reason Stop Dose Admin Lactated Ringer's 1,000 mls @ 15 mls/hr 05/04/25 09:00 05/04/25 09:18 IV 15 mls/hr .Q48H ALIRIO Administration PFSH Medical History Wears glasses Back pain Difficulty swallowing Non-smoker Vacuum-assisted vaginal delivery Placental abnormality Anxiety Migraines Home Medications ?Medication ?Instructions ?Recorded ?Last Taken ?Type desogestrel 0.15 mg-ethinyl 1 tab PO QDAY #84 tabs 01/27/25 05/03/25 Rx estradiol 0.03 mg tablet (Apri) buspirone 5 mg tablet 5 mg PO BID #60 tabs 02/02/25 Unknown Rx clobetasol 0.05 % topical cream 1 applic topical BID 05/04/25 05/03/25 History Allergy/AdvReac Type Severity Reaction Status Date / Time No Known Allergies Allergy Verified 05/04/25 09:08 Family History Father Heart disease Skin cancer Hypertension Esophageal cancer Mother Thyroid disorder Hypertension Sister Seizures Surgical History [place] teeth extracted Social History adopted: No household members: spouse current occupational status: employed 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 Physical Exam Const alert and oriented x3 Resp normal respiratory effort and normal air movement Cardio regular rate and regular rhythm Cardio Narrative: NSR on EKG Back/Spine normal ROM Neuro oriented x3 and moves all extremities
--- NOTE | 2025-05-04 10:06 | H&P.OPEN ---
HPI - General General Date of Service: 05/04/25 HPI Narrative BINA CELIS, is a 35 F who presents for a diagnostic colonoscopy due to rectal bleeding. Patient denies any changes since office visit. Has had occasional small amounts of bright red blood. Patient opted to not get worked up with the laparoscopy for endometriosis as she was told the treatment is the same. Office visit 02/24/2025 HPI HPI: 35-year-old female presents for colonoscopy due to bright red blood per rectum. Patient states that she has had this for about 2 years maybe more frequently now patient states she does have some small amount of bright red blood when she wipes after bowel movements has this frequently but not every bowel movement. Patient denies any known history of hemorrhoids. Patient never had previous colonoscopy. Patient denies any abdominal pain/nausea/vomiting/reflux. Patient is currently being worked up for possible endometriosis as she gets increased pain and urinary urgency during her periods. Patient denies any family history of colon cancer. [facility] Medical History Wears glasses Back pain Difficulty swallowing Non-smoker Vacuum-assisted vaginal delivery Placental abnormality Anxiety Migraines Home Medications ?Medication ?Instructions ?Recorded ?Last Taken ?Type desogestrel 0.15 mg-ethinyl 1 tab PO QDAY #84 tabs 01/27/25 05/03/25 Rx estradiol 0.03 mg tablet (Apri) buspirone 5 mg tablet 5 mg PO BID #60 tabs 02/02/25 Unknown Rx clobetasol 0.05 % topical cream 1 applic topical BID 05/04/25 05/03/25 History Allergy/AdvReac Type Severity Reaction Status Date / Time No Known Allergies Allergy Verified 05/04/25 09:08 Family History Father Heart disease Skin cancer Hypertension Esophageal cancer Mother Thyroid disorder Hypertension Sister Seizures Surgical History [place] teeth extracted Social History adopted: No household members: spouse current occupational status: employed 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 [employer] current occupational exposures/hazards: No pets and animals: Yes sexually active: Yes Smoking Status: Never smoker alcohol intake: current details: not while seatbelt use: always do you feel safe at home: Yes additional social history: Tc ruiz Past Medical/Surgical History Planned Operation Planned Operative Procedure(s): COLONOSCOPY Previous Hospitalizations/Surgeries HX Hospitalizations: No Any Problems With Anesthesia: No You/Your Family Experience Fever (Hyperthermia) With Anes: No Cholinesterase deficiency: No Cardiovascular Hx Hypertension: No Respiratory Hx Sleep Apnea: No Hx Respiratory Tract Infection/Cold (presently): No Do You Snore Loudly (louder than talking or can be heard): No Do You Often Feel Tired/ Fatigued/ Sleepy Dring Daytime?: No Has Anyone Observed You Stop Breathing During Sleep?: No Result (for STOP score): Negative Hx Smoking: No Smoking Status: Never smoker Neurological Does patient have nerve stimulator: No Reproduction : No Psycho/Social Hx Depression: Yes Miscellaneous Recent Exposure to Contagious Disease: No Allergies No Known Allergies Allergy (Verified 05/04/25 09:08) Discharge Is Pt Admitted From a [facility], or a Senior Care: No Who Could Help: After D/C, Where Do you Plan to Go: Return Home Vital Signs Vital Signs Vital Signs: 05/04/25 09:09 05/04/25 09:09 05/04/25 09:32 Temperature 97.8 F 97.8 F Temperature Source Temporal Pulse Rate 74 74 Respiratory Rate 18 18 Respiratory Pattern Normal Blood Pressure 118/83 H 118/83 H Blood Pressure Mean 94 Blood Pressure Source Monitor Blood Pressure Position Semi-Fowlers Blood Pressure Location Right Arm Pulse Ox 100 100 Oxygen Delivery Method Room Air Room Air Weight Weight: 187 lb 13.341 oz Body Mass Index (BMI) 32.2 Physical Exam Const alert, oriented x3 and no apparent distress HEENT normocephalic and head/scalp atraumatic Resp normal respiratory effort Cardio regular rate GI soft to palpation and non-tender; Negative for non-distended Palpation: Negative for guarding Extremity no clubbing, cyanosis or edema Skin no rashes or lesions noted Neuro CN's II-XII intact bilaterally Psych mental status grossly normal Assessment & Plan Assessment/Plan (1) Rectal bleeding: Surgery Risks - Colonoscopy I discussed with the patient the risks of the procedure: Yes Risks Include but are not Limited To: Risks include but are not limited to: Bleeding, perforation requiring further surgery, inability to complete colonoscopy requiring barium enema.
--- NOTE | 2025-05-04 11:18 | PCM.POST.ANE ---
Anesthesia: Postop Eval I Current Vital Signs Temperature: 98.7 F Pulse Rate: 66 Blood Pressure: 92/49 Respiratory Rate: 16 Pulse Ox: 100 Oxygen Delivery Method: Room Air Assessment Airway patent: Yes Spontaneous unlabored respirations: Yes Mental status: Asleep nausea: No Vomiting: No Anesthesia Complication: No Fluid Hydration Crystalloid volume administer (ml): 400 Total IV fluid infused: 400 Progress Note Anesthesia document: Postop Eval 1 completed: No
--- NOTE | 2025-05-04 11:21 | OP.PROVAT_ITS ---
05/04/2025 Duncan Spicer MD [address] [place] [address] Re : Colonoscopy procedure for Cyndie Crum Dear Dr. Spicer This procedure was performed on Sunday, May 04, 2025. My impressions and recommendations are as follows: Impressions : - Hemorrhoids found on perianal exam. - Non-bleeding internal hemorrhoids. - The entire examined colon is normal. - No specimens collected. Recommendations : - Discharge patient to home. - Resume previous diet. - Continue present medications. - Repeat colonoscopy at age 46. My findings are described in the full procedure note, which is enclosed. If I can be of further assistance, please feel free to contact me at Doctor phone number(s): , Work: . Sincerely, MD Libia Hernandez MD 05/04/2025 11:21:20 AM This report has been signed electronically.
--- NOTE | 2025-05-04 11:21 | OP.COLON_ITS ---
Patient Name: Cyndie Crum Procedure Date: 05/04/2025 10:45 AM Date of : 1990 Age: 35 Procedure: Colonoscopy Indications: Rectal bleeding Providers: Libia Leach MD Referring MD: Duncan Spicer MD Medicines: Monitored Anesthesia Care Patient Profile: This is a 35 year old female. Last Colonoscopy: none. The patient's first colonoscopy is today. Complications: No immediate complications. Procedure: Pre-Anesthesia Assessment: - Prior to the procedure, a History and Physical was performed, and patient medications and allergies were reviewed. The patient's tolerance of previous anesthesia was also reviewed. The risks and benefits of the procedure and the sedation options and risks were discussed with the patient. All questions were answered, and informed consent was obtained. Prior Anticoagulants: The patient has taken no anticoagulant or antiplatelet agents. ASA Grade Assessment: Per anesthesia. After reviewing the risks and benefits, the patient was deemed in satisfactory condition to undergo the procedure. After I obtained informed consent, the scope was passed under direct vision. Throughout the procedure, the patient's blood pressure, pulse, and oxygen saturations were monitored continuously. The Colonoscope was introduced through the anus and advanced to the cecum, identified by the appendiceal orifice, ileocecal valve and palpation. The colonoscopy was performed without difficulty. The patient tolerated the procedure well. The quality of the bowel preparation was good. Scope In: 10:58:15 AM Scope Withdrawal Time 0 hours 6 minutes 22 seconds Scope Out: 11:11:02 AM Total Procedure Duration Time 0 hours 12 minutes 47 seconds Findings: Hemorrhoids were found on perianal exam. Non-bleeding internal hemorrhoids were found. The hemorrhoids were Grade I (internal hemorrhoids that do not prolapse). The entire examined colon appeared normal. Impression: - Hemorrhoids found on perianal exam. - Non-bleeding internal hemorrhoids. - The entire examined colon is normal. - No specimens collected. Recommendation: - Discharge patient to home. - Resume previous diet. - Continue present medications. - Repeat colonoscopy at age 46. Procedure Code(s): --- Professional --- 26894, PT, Colonoscopy, flexible; diagnostic, including collection of specimen(s) by brushing or washing, when performed (separate procedure) Diagnosis Code(s): --- Professional --- K64.0, First degree hemorrhoids K62.5, Hemorrhage of anus and rectum CPT copyright 2021 [employer]. All rights reserved. The codes documented in this report are preliminary and upon juvenile officer review may be revised to meet current compliance requirements. MD Libia Hernandez MD 05/04/2025 11:21:20 AM This report has been signed electronically. Number of Addenda: 0 Note Initiated On: 05/04/2025 10:45 AM
--- NOTE | 2025-05-04 11:54 | POSTOPAN2_ITS ---
Anesthesia Postop Eval I Sum Postop Eval Completion status Anesthesia document: Postop Eval 1 completed: No Anesthesia Postop Eval I Summary Anesthesia Postop Eval I Summary: Anesthesia Postop Eval I: Assessment Summary Airway patent Yes 05/04/25 11:19 CROTCH BREAKER.[email or web address] Spontaneous unlabored Yes 05/04/25 11:19 CROTCH BREAKER.DAVID respirations Mental status Asleep 05/04/25 11:19 CROTCH BREAKER.DAVID nausea No 05/04/25 11:19 CROTCH BREAKER.DAVID Vomiting No 05/04/25 11:19 CROTCH BREAKER.DAVID Anesthesia Postop Eval I: Fluid Summary Crystalloid volume administer 400 05/04/25 11:19 CROTCH BREAKER.DAVID (ml) Colloids volume administered ( ml) Blood Product volume administered (ml) Total IV fluid infused 400 05/04/25 11:19 CROTCH BREAKER.DAVID Anesthesia Postop Eval I: Summary Notes Anesthesia Complication No 05/04/25 11:19 DAYANA Anesthesia Complication Comment: Post-operative progress note Anesthesia: Postop Eval II Evaluation Mental status: Awake and Calm Pain Level: 0 nausea: No Vomiting: No Complications Anesthesia Complication: No
--- NOTE | 2025-05-04 11:54 | PCM.POSTANE2 ---
Anesthesia Postop Eval I Sum Postop Eval Completion status Anesthesia document: Postop Eval 1 completed: No Anesthesia Postop Eval I Summary Anesthesia Postop Eval I Summary: Anesthesia Postop Eval I: Assessment Summary Airway patent Yes 05/04/25 11:19 COUNSELLING PSYCHOLOGIST.TRISTONOB[place]on Spontaneous unlabored Yes 05/04/25 11:19 COUNSELLING PSYCHOLOGIST.DAVID respirations Mental status Asleep 05/04/25 11:19 COUNSELLING PSYCHOLOGIST.DAVID nausea No 05/04/25 11:19 COUNSELLING PSYCHOLOGIST.DAVID Vomiting No 05/04/25 11:19 COUNSELLING PSYCHOLOGIST.DAVID Anesthesia Postop Eval I: Fluid Summary Crystalloid volume administer 400 05/04/25 11:19 COUNSELLING PSYCHOLOGIST.DAVID (ml) Colloids volume administered ( ml) Blood Product volume administered (ml) Total IV fluid infused 400 05/04/25 11:19 COUNSELLING PSYCHOLOGIST.DAVID Anesthesia Postop Eval I: Summary Notes Anesthesia Complication No 05/04/25 11:19 DAYANA Anesthesia Complication Comment: Post-operative progress note Anesthesia: Postop Eval II Evaluation Mental status: Awake and Calm Pain Level: 0 nausea: No Vomiting: No Complications Anesthesia Complication: No
== END 2025-05-04 12:01 | disposition home or self-care (01) ==
LOC: EN 08:48 → AC 08:49
PROVIDERS: Anesthesiology; PCP Family Medicine; Referring Provider Family Medicine; Visit Provider Surgery
PROC: 0DJD8ZZ Inspection of Lower Intestinal Tract, Via Natural or Artificial Opening Endoscopic (ICD-10-PCS; CPT 45378; principal; 2025-05-04 09:55)
DX: K64.0 First degree hemorrhoids (principal); K64.4 Residual hemorrhoidal skin tags
CPT/HCPCS: 45378; 81025; J2405